=== PATIENT | female | born 1990 | race Caucasian/White ===

== ENCOUNTER 2017-12-21 13:59 | Observation (INO) | payer BC, MEDICAID, SELFPAY ==
[2017-12-21 14:00] VITALS: BP 114/53; PULSE 82; RESP 16; TEMP 36.8; O2SAT 100
[2017-12-21 14:05] VITALS: BMI 36.4
[2017-12-21 14:15] VITALS: BMI 36.4
--- NOTE | 2017-12-21 14:21 | NURSING ---
pt has not had any immunizations besides childhood ones years ago
[2017-12-21 14:22] VITALS: BP 114/53; PULSE 82; RESP 16; TEMP 36.8
[2017-12-21 14:53] LABS: Amphetamine Urine VISTA NEGATIVE (<1000 ng/mL); Barbiturate Urine VISTA NEGATIVE (< 200 ng/mL); Benzodiazepine Urine VISTA NEGATIVE (< 200 ng/mL); Cocaine Urine VISTA NEGATIVE (< 300 ng/mL); Ecstacy Urine VISTA NEGATIVE (< 500 ng/mL); Methadone Urine VISTA NEGATIVE (< 300 ng/mL); PCP Urine VISTA NEGATIVE (< 25 ng/mL); THC Urine VISTA NEGATIVE (< 50 ng/mL); Vista UDS pH Range 5
--- NOTE | 2017-12-21 15:01 | HP.PCM_ITS ---
Problem List (1) Drug abuse Status: Chronic (2) Obesity (BMI 30-39.9) Status: Chronic History of Present Illness Date of Admission: 12/21/17 Chief Complaint: Opioid withdrawal. The patient is a 27 year old F with past medical history as mentioned above who presented to the [facility] office requesting admission for medical stabilization for opioid withdrawal. She has been snorting heroin for the last 9 years almost every day and her last use was last night. Her symptoms are anxiety, shakiness and restlessness that has been going on since early this morning and has been constantly worsening, associated with restless legs no aggravating or relieving factors and no other associated symptoms. She denied abdominal pain or cramps, denied nausea vomiting. She denied diarrhea. She denies urinary symptoms. She mentioned that she had detoxification program last year in [place] this patient will augment she has started using heroin shortly after that detox program. At this time, her vital signs are stable. She was a direct admit and there was no routine blood work done. She is being admitted for opioid withdrawal for medical stabilization. Past Medical History Past Medical History (Chronic Problems): Chronic Problems Drug abuse (Chronic) Obesity (BMI 30-39.9) (Chronic) Allergies Sulfa (Sulfonamide Antibiotics) Allergy (Verified 12/21/17 14:11) Unknown breathing issues Home Medications: Ambulatory Orders Medication Instructions Recorded NK [NK] 12/21/17 Surgical History: - - x 1. Psychiatric History: No pertinent psych hx DIRECTOR BROADCAST History: No pertinent DIRECTOR BROADCAST history Smoking Status: Never smoker Alcohol: None Drugs: Heroin - *Family History Maternal History Items: - - Mother w/ osteoarthritis. Maternal aunt with lupus. Paternal History Items: Unknown Review of Systems Constitutional: Reports: Malaise. Denies: Anorexia, Chills, Fever, Weakness Eyes: Denies: Blurred vision, Double vision, Drainage, Redness HEENT: Denies: Difficulty Hearing, Ear Pain, Eye Pain, Nasal bleeding, Nasal Congestion, Sore Throat Cardiovascular: Denies: Chest Pain, Claudication, Chest Pressure, Edema Respiratory: Denies: Cough, Pleuritic Pain, Shortness of Breath, Sputum production, Wheezing Gastrointestinal: Denies: Abdominal Pain, Constipation, Diarrhea, Nausea, Vomiting Genitourinary: Denies: Dysuria, Frequency, Hematuria Musculoskeletal: Denies: Arm Pain, Back Pain, Foot Pain Skin: Denies: Dryness Neurological: Denies: Balance problems, Double vision, Confusion, Headaches, Incoordination, Numbness Psychiatric: Reports: Anxiety. Denies: Depression Endocrine: Denies: Change in Body Habitus, Polydipsia VTE Information - Inpt Only VTE Present on Admission: No VTE Mechan Device Prophylaxis: None VTE Pharm Prophylaxis ordered?: No - Physical Exam General: Alert, Oriented x3, Cooperative, - - Anxious, restless. HEENT: Atraumatic, PERRLA, EOMI Oral: Moist Mucosa, No Gingival or Mucosal Lesions/ Ulcerations Neck: Supple, No JVD, Negative Carotid Bruits, Trachea Midline, Thyroid Normal Size and Texture Lungs: Clear to auscultation, Normal air movement, No rhonchi, No wheeze, No rales Cardiovascular: Regular rate, Regular Rhythm, Normal S1, Normal S2, No murmurs Abdomen: Bowel Sounds Present, Soft, Non Tender, Non-Distended, No Hepato- splenomegaly Extremities: No clubbing, No cyanosis, No edema Skin: No rashes, No breakdown Lymphatic: No Cervical, Supraclavicular, or Inguinal Adenopathy Neurological: Cranial nerves II-XII grossly intact, Motor Exam 5/5 strength throughout Psych/Mental Status: Anxious, Restless, Alert and oriented to time, place, person, mood and affect Vital Signs Temp Pulse Resp BP Pulse Ox 98.2 F 82 16 114/53 L 100 12/21/17 14:22 12/21/17 14:22 12/21/17 14:22 12/21/17 14:22 12/21/17 14:00 Oxygen Delivery Method Room Air Weight: 180 lb 5.41 oz Body Mass Index (BMI) 36.4 Laboratory Tests Past 24 Hrs 12/21/17 12/21/17 12/21/17 14:10 14:52 14:52 WBC Pending RBC Pending Hgb Pending Hct Pending MCV Pending MCH Pending MCHC Pending RDW Pending RDW Differential Pending Plt Count Pending Neut % (Auto) Pending Absolute Neuts (auto) Pending Total Counted Pending Sodium Pending Potassium Pending Chloride Pending Carbon Dioxide Pending Anion Gap Pending BUN Pending Creatinine Pending Est GFR (MDRD) Af Amer Pending Est GFR (MDRD) Non-Af Pending BUN/Creatinine Ratio Pending Glucose Pending Calcium Pending Total Bilirubin Pending AST Pending ALT Pending Alkaline Phosphatase Pending Total Protein Pending Albumin Pending Serum , Qual Urine Opiates Screen POSITIVE H Urine Methadone Screen NEGATIVE Ur Barbiturates Screen NEGATIVE Ur Phencyclidine Scrn NEGATIVE Ur Amphetamines Screen NEGATIVE U Methamphetamin-MDMA NEGATIVE U Benzodiazepines Scrn NEGATIVE Urine Cocaine Screen NEGATIVE U Cannabinoids Screen NEGATIVE Ur Drug Screen Comment Ethyl Alcohol 12/21/17 12/21/17 14:52 14:52 WBC RBC Hgb Hct MCV MCH MCHC RDW RDW Differential Plt Count Neut % (Auto) Absolute Neuts (auto) Total Counted Sodium Potassium Chloride Carbon Dioxide Anion Gap BUN Creatinine Est GFR (MDRD) Af Amer Est GFR (MDRD) Non-Af BUN/Creatinine Ratio Glucose Calcium Total Bilirubin AST ALT Alkaline Phosphatase Total Protein Albumin Serum , Qual Pending Urine Opiates Screen Urine Methadone Screen Ur Barbiturates Screen Ur Phencyclidine Scrn Ur Amphetamines Screen U Methamphetamin-MDMA U Benzodiazepines Scrn Urine Cocaine Screen U Cannabinoids Screen Ur Drug Screen Comment Ethyl Alcohol Pending Assessment/Plan This is a 27 years old female patient presented to the [facility] office requesting admission for medical stabilization for opioid withdrawal. #1 acute opiate withdrawal: Patient has been snorting heroin for the last 9 years almost every day, last use was last night. Denied use of any other drugs. She denied alcohol drinking or smoking. Her vital signs are stable. Plan: [facility], stat CBC and CMP, urine drug screen, blood alcohol level, serum test, start [facility] protocol with tapering course of Subutex, as needed Tylenol, Catapres, Bentyl, Vistaril, methocarbamol , Zofran, Seroquel and liquid. #2 DVT prophylaxis: Low risk patient, no prophylaxis indicated, ambulate. This note was generated with [employer] dictation software. It may contain incorrect words, spelling, and punctuation that were not noted in checking the note before signing. Code Visit Inpatient E&M: 62680 Init Hosp L2
[2017-12-21 15:04] LABS: Absolute Lymphocyte Count 1.68 X10^3/ul (0.83-4.51); Absolute Neutrophil Count 3.4 X10^3/uL (2.0-7.7); Basophil# 0.01 X10^3/uL; Basophil% 0.2 % (0-1); Eosinophil# 0.04 X10^3/uL; Eosinophils% 0.7 % (0-5); Hematocrit 35.7 % (37-47); Hemoglobin 12.5 g/dl (12.0-15.0); Lymphocyte # 1.68 X10^3/ul (4.0); Lymphocyte % 29.6 % (19-41); Mean Corpuscular Hgb 31.2 pg (27.0-32.0); Mean Platelet Vol. 8.8 fl (6.2-12.0); Monocyte# 0.53 X10^3/uL; Monocyte% 9.3 % (0-10); Neutrophil # 3.41 X10^3/uL (2.7-7.7); Platelet Count 214 K/mm3 (150-450); RBC Distribution Width CV 13.2 % (11.6-14.6); RBC Distribution Width SD 42.2 fl (35.1-43.9); Red Blood Count 4.01 M/mm3 (4.2-5.4); White Blood Count 5.7 K/mm3 (4.4-11.0)
[2017-12-21 15:05] LABS: POSITIVE COUNT NO; POSITIVE DIFFERENTIAL NO; POSITIVE MORPHOLOGY NO
[2017-12-21 15:20] LABS: ALB/GLOB Ratio 1.1 RATIO (0.9-2.4); AST(SGOT) 12 U/L (15-37); Alanine Aminotransfer ALT/SGPT 16 U/L (13-56); Albumin, Serum 3.7 g/dL (3.2-5.0); Alkaline Phosphatase 41 U/L (45-117); Anion Gap 8 (5-15); BUN 11 mg/dL (7-18); Calcium,Total 8.6 mg/dL (8.5-10.1); Chloride 103 mmol/L (98-107); EST Glomerular Filtration Rate 159 mL/min (>60); Est Glom Filt Rate - Afr Amer 193 mL/min (>60); Estimated Creatinine Clearance 222.11 ml/min; Globulin 3.4 g/dL (2.2-4.2); Glucose 77 mg/dL (74-106); Potassium 3.7 mmol/L (3.5-5.1); Protein, Total 7.1 g/dL (6.4-8.2); Sodium Level 135 mmol/L (136-145)
[2017-12-21] MEDS: hydrOXYzine PAM 25 MG Capsule 50 MG PO (15:25)
[2017-12-21] MEDS: Acetaminophen 500 MG Tablet PO (15:28)
[2017-12-21 15:49] LABS: Pregnancy, Serum, hCG Quali. POSITIVE Negative (0-9 Nonpreg)
--- NOTE | 2017-12-21 16:00 | NURSING ---
this RN and Rosemarie spoke with pt informing her of positive test and option for [facility]'s withdrawal program for women.
--- NOTE | 2017-12-21 16:07 | DS.PCM_ITS ---
Discharge Date and Diagnosis Date of Admission: 12/21/17 Date of Discharge: 12/21/17 - Primary Discharge Diagnosis #1 acute opioid withdrawal. #2 positive test. - Secondary Discharge Diagnosis Chronic Problems Drug abuse (Chronic) Obesity (BMI 30-39.9) (Chronic) Hospital Course and Treatment Operations: None, - Procedures: None Summary of Care Provided: The patient is a 27 year old F presented to the [facility] office requesting admission for medical stabilization for opioid withdrawal. She was admitted, started on [facility] protocol with tapering course of Subutex. Her vital signs are stable. Her routine blood work was unremarkable. Her LFT was normal. Urine drug screen was positive for opioids. Serum test was positive. According to our protocol with [facility] service, the patient needs to be discharged and evaluated at another facility which they can manage opioid withdrawal in a patient. Patient discharged and highly recommended and encouraged to be evaluated at [facility] emergency department for probable admission for acute opioid withdrawal with . Discharge Diet: No Restrictions Discharge Activity: Return to Normal Activity Home Medications: Medications to take at Discharge NK [NK] 12/21/17 Primary Care Physician: Concha Crowder DO [Primary Care Provider] - Disposition: Home Patient Condition:: Stable Medical Necessity - Tobacco Use Smoking Status: Never smoker Meaningful Use Info Meaningful Use Diagnoses (Choose all that apply): None applicable
[2017-12-21 16:08] LABS: Alcohol, Blood (Medical)-Serum < 3.0 mg/dL
--- NOTE | 2017-12-21 17:07 | NURSING ---
pt still very upset about news. on phone with boyfriend trying to make plans
== END 2017-12-21 17:59 | disposition home or self-care (01) ==
PROVIDERS: Admitting Provider Hospitalist; Family Provider Family Medicine; PCP Family Medicine; Visit Provider Hospitalist
DX: O26.899 Other specified pregnancy related conditions, unspecified trimester (principal); F11.23 Opioid dependence with withdrawal; O99.210 Obesity complicating pregnancy, unspecified trimester; Z68.36 Body mass index [BMI] 36.0-36.9, adult; Z3A.00 Weeks of gestation of pregnancy not specified
CPT/HCPCS: 36415; 80053; 80307; 80320; 84703; 85025; 99218; G0378; G0379; G0480

== ENCOUNTER → 2018-05-16 15:33 | Outpatient (CLI) | payer BC, MEDICAID, SELFPAY ==
[2018-05-16 20:21] LABS: Chlamydia Trachomatis by PCR Negative (Negative); Neisserai gonorrhoeae by PCR Negative (Negative); Probe Check PASS; Sample Adequacy Control PASS; Specimen Processing Control PASS
[2018-05-19 16:29] LABS: HPV Reflexed? NOT INDICATED
== END ==
PROVIDERS: Visit Provider Obstetrics & Gynecology
DX: Z12.4 Encounter for screening for malignant neoplasm of cervix (principal); Z11.3 Encounter for screening for infections with a predominantly sexual mode of transmission
CPT/HCPCS: 87491; 87591; 88175; G0145

== ENCOUNTER → 2018-05-22 15:37 | Outpatient (CLI) | payer MEDICAID, SELFPAY ==
[2018-05-22 17:25] LABS: Absolute Lymphocyte Count 1.21 X10^3/ul (0.83-4.51); Absolute Neutrophil Count 3.2 X10^3/uL (2.0-7.7); Basophil# 0.01 X10^3/uL; Basophil% 0.2 % (0-1); Eosinophil# 0.02 X10^3/uL; Eosinophils% 0.4 % (0-5); Hematocrit 34.6 % (37-47); Hemoglobin 11.2 g/dl (12.0-15.0); Lymphocyte # 1.21 X10^3/ul (4.0); Lymphocyte % 24.8 % (19-41); Mean Corp Hgb Conc 32.4 g/gl (32-36); Mean Corpuscular Hgb 28.8 pg (27.0-32.0); Mean Corpuscular Volume 88.9 fL (81-99); Mean Platelet Vol. 9.9 fl (6.2-12.0); Monocyte# 0.44 X10^3/uL; Neutrophil # 3.19 X10^3/uL (2.7-7.7); Neutrophil % 65.6 % (47-70); POSITIVE COUNT NO; POSITIVE DIFFERENTIAL NO; POSITIVE MORPHOLOGY NO; Platelet Count 195 K/mm3 (150-450); RBC Distribution Width CV 12.7 % (11.6-14.6); RBC Distribution Width SD 39.9 fl (35.1-43.9); Red Blood Count 3.89 M/mm3 (4.2-5.4); White Blood Count 4.9 K/mm3 (4.4-11.0)
[2018-05-22 17:27] LABS: Color, Urine Yellow (Yellow); Glucose, Dipstick Normal (Normal); Ketone-Dipstick Negative (Negative); Leukocyte Esterase-Dipstick 25 /ul (Negative); Nitrite-Dipstick Negative (Negative); Occult Blood-Urine Negative /ul (Negative); Protein-Dipstick 15 mg/dl (Negative); Urine Bilirubin Dipstick Negative (Negative); Urine Clarity Sl. Cloudy (Clear); Urine Urobilinogen 4 mg/dl (Normal)
[2018-05-22 17:43] LABS: COTININE Drug Screen Negative (<200 ng/mL)
[2018-05-22 17:47] LABS: Thyroid Stim Hormone (TSH) 0.99 uIU/mL (0.358-3.74)
[2018-05-22 17:51] LABS: Amphetamine Urine VISTA NEGATIVE (<1000 ng/mL); Barbiturate Urine VISTA NEGATIVE (< 200 ng/mL); Benzodiazepine Urine VISTA NEGATIVE (< 200 ng/mL); Cocaine Urine VISTA NEGATIVE (< 300 ng/mL); Ecstacy Urine VISTA NEGATIVE (< 500 ng/mL); Methadone Urine VISTA NEGATIVE (< 300 ng/mL); PCP Urine VISTA NEGATIVE (< 25 ng/mL); THC Urine VISTA NEGATIVE (< 50 ng/mL); Vista UDS pH Range 7
[2018-05-22 18:36] LABS: HIV - WCH Non-Reactive (Nonreactive); Rubella IgG 324.1 IU/mL
[2018-05-24 10:24] LABS: HEPATITIS B SURFACE AG Negative (Negative); Hep C Antibodies <0.1 s/co ratio (0.0-0.9)
[2018-05-26 01:58] LABS: Prenatal RPR NONREACTIVE (NONREACTIVE)
== END ==
PROVIDERS: Visit Provider Obstetrics & Gynecology
DX: Z34.83 Encounter for supervision of other normal pregnancy, third trimester (principal)
CPT/HCPCS: 36415; 80307; 81002; 84443; 85025; 86703; 86762; 86803; 87340

== ENCOUNTER → 2018-05-30 14:28 | Outpatient (CLI) | payer MEDICAID, SELFPAY ==
[2018-05-30 16:55] LABS: Group B Strep DNA By PCR Negative (Negative); Internal Control PASS; Probe Check PASS; Specimen Processing Control PASS
== END ==
PROVIDERS: Visit Provider Obstetrics & Gynecology
DX: Z36.85 Encounter for antenatal screening for Streptococcus B (principal)
CPT/HCPCS: 87081; 87186; 87653

== ENCOUNTER 2018-06-16 05:15 | Inpatient (IN) | payer BC, MEDICAID, SELFPAY ==
[2018-06-13 11:53] VITALS: BMI 40.6
--- NOTE | 2018-06-13 11:59 | NURSING ---
PNC started 35 weeks
[2018-06-16] VITALS (28 sets, daily range): BP systolic 85–144; BP diastolic 45–72; PULSE 55–95; RESP 16; TEMP 36.1–37.3; O2SAT 97–99
[2018-06-16] MEDS: Lactated Ringers 1,000 ML 999 ML IV (05:45)
--- NOTE | 2018-06-16 05:45 | DCINST_ITS ---
Discharge Diet: No Restrictions Discharge Activity: Return to Normal Activity, May Not Drive, May not drive while taking narcotic pain medications., May Shower Return to work on:: 08/16/18 May shower in (days): 0 May resume sexual activity in: 4-6 weeks Call your doctor if your incision/area has: Sudden Increased Bleeding, Increased Pain/ Swelling, Increased Redness, Foul Smelling Discharge, Swelling at the incision site Call your doctor if you observe: Fever of 101 or Higher, Inability to urinate, Using more than one pad per hour, Shortness of breath, Chest pain, Calf discomfort, Uncontrolled pain Remove Dressing in (days):: 2 Cleanse incision/area with: Soap & Water Additional Instructions: If you experience any of the following, contact your healthcare provider. * Bleeding that soaks a pad every hour for 2 hours * Fever 100.4 or higher * Unrelieved incision or abdominal pain * Swelling, redness, discharge or bleeding from your incision or episiotomy site * Your incision begins to separate * Problems urinating (including inability to urinate or burning while urinating). * Visual changes * Severe headache * Flu-like symptoms * Pain or redness in one of both of your breasts * Pain, warmth, tenderness or swelling in your legs, especially the calf area * Frequent nausea and vomiting * Symptoms of depression or anxiety If you experience any of the following, call 911 or go to the nearest Emergency Room. * Chest pain * Problems breathing * Seizure activity * Partial or complete paralysis of a body part, slurred speech, weakness or drooping of the face, or a sudden inability to walk or hold your balance Allergies/Adverse Reactions: Allergies Sulfa (Sulfonamide Antibiotics) Allergy (Verified 06/13/18 11:55) Anaphylaxis breathing issues Medications to take at Discharge Vits [Prenatabs FA ] 1 tablet PO DAILY 06/13/18 Sertraline HCl [Zoloft] 50 mg PO DAILY 06/13/18 Ibuprofen 600 mg PO 4X/DAY #30 tab 06/16/18 Oxycodone [Oxyir] 5 - 10 mg PO Q4H PRN PRN 7 Days #28 tab 06/16/18 The following prescriptions were given: Oxycodone [Oxyir] 5 - 10 mg PO Q4H PRN PRN 7 Days #28 tab PRN Reason: Mod-Severe Pain (4-05/03) Ibuprofen 600 mg PO 4X/DAY #30 tab Follow-Up: Call to make an appointment with your doctor for an incision check in 1-2 weeks. You will also need a 6 week post- follow up appointment. Test results from this visit will be discussed in further detail at your follow- up appointment, if applicable. Please Follow Up With: Daniel Poole MD When: one week Primary Care Physician: Concha Crowder DO [Primary Care Provider] - Proposed Discharge Date: 06/19/18
--- NOTE | 2018-06-16 05:53 | PCM.OPRPT ---
Problem List (1) Previous delivery affecting , antepartum Status: Chronic Report of Operation Date of Procedure: 06/16/18 Pre-Operative Diagnosis: Previous Section at 39 weeks EGA Post-Operative Diagnosis: Same Surgery/Procedure Performed:: Repeat Low Transverse Section Description of Surgical Findings:: Normal appearing uterus, ovaries, and fallopian tubes. Amniotic fluid was lightly meconium stained. Normal appearing placenta. Live male weighing [id number]. APGARs 8/9. esthetician: Sandra Simmons Type of Anesthesia:: Spinal Anesthesiologist: Luis Manuel Raza Special Medications: none Specimen's removed: none Drains: jerome Estimated Blood Loss (mL): 600cc Fluids Replaced: 1500cc LR Description of Procedure: Procedures, risks, and postoperative expectations discussed with Kennedi prior to the surgery. She was taken to the OR with IV running. She was given two grams of Ancef intravenously prior to the start of the surgery. Spinal anesthesia was given without complication. A jerome catheter was placed. She was then prepped and draped in the supine position with a leftward tilt. Once anesthesia was deemed adequate a Pfannensteil skin incision was made through the previous scar. The underlying subcutaneous tissue was dissected down to the level of the fascia using blunt and sharp dissection. The fascia was then incised laterally in the midline and this incision was extended bilaterally with the Anderson scissors. The upper portion of the fascial defect was then grasped with two Vipul clamps, elevated and the rectus muscles dissected off the fascia with blunt and sharp dissection. The rectus muscles were dissected off the lower fascial defect in the same manner. The rectus muscles were in the midline, the peritoneum identified and entered sharply. The peritoneal defect was extended using blunt retraction. A bladder blade was placed. The vesicouterine peritoneum was then entered sharply and a bladder flap created. The bladder blade was then replaced. The lower uterine segment was incised in a transverse fashion. Once the cavity of the uterus was entered this defect was extended using blunt lateral and superior traction. The amniotic fluid was noted to be lightly meconium stained. The baby's head was then delivered with the assist of the Kiwi vacuum device followed by the body. The nose and mouth were then suctioned with a bulb suction. Delayed cord clamping was employed. The cord was clamped and cut and the baby handed to the waiting nurse for evaluation. The placenta was delivered manually. The uterus was exteriorized and cleared of all clot and membranes. The uterine incision was then closed in two layers with #1 Vicryl suture. The posterior cul de sac was cleared of all clot and fluid. The uterus was returned to the abdomen. The uterine incision was reinspected and found to be hemostatic. The peritoneum was closed with 2-0 Vicryl. The rectus muscles were reapproximated with 0-Vicryl suture. The fascia was closed with a running stitch of #1 Stratofix suture. The subcutaneous tissue was closed with 2-0 Vicryl. The skin was closed with a subcuticular stitch of 4-0 Monocryl suture. Sponge, lap, and needle and instrument counts were correct. She was taken to the recovery room in stable condition. Grafts/Implants Used: none - Complications none - Admit VTE Documentation VTE Present on Admission: No VTE Mechan Device Prophylaxis: SCD's VTE Pharm Prophylaxis ordered?: No
--- NOTE | 2018-06-16 06:10 | OP.PCM_ITS ---
Problem List (1) Previous delivery affecting , antepartum Status: Chronic Report of Operation Date of Procedure: 06/16/18 Pre-Operative Diagnosis: Previous Section at 39 weeks EGA Post-Operative Diagnosis: Same Surgery/Procedure Performed:: Repeat Low Transverse Section Description of Surgical Findings:: Normal appearing uterus, ovaries, and fallopian tubes. Amniotic fluid was lightly meconium stained. Normal appearing placenta. Live male weighing [id number]. APGARs 8/9. tire man: Sandra Simmons Type of Anesthesia:: Spinal Anesthesiologist: Luis Manuel Raza Special Medications: none Specimen's removed: none Drains: jerome Estimated Blood Loss (mL): 600cc Fluids Replaced: 1500cc LR Description of Procedure: Procedures, risks, and postoperative expectations discussed with Kennedi prior to the surgery. She was taken to the OR with IV running. She was given two grams of Ancef intravenously prior to the start of the surgery. Spinal anesthesia was given without complication. A jerome catheter was placed. She was then prepped and draped in the supine position with a leftward tilt. Once anesthesia was de emed adequate a Pfannensteil skin incision was made through the previous scar. The underlying subcutaneous tissue was dissected down to the level of the fascia using blunt and sharp dissection. The fascia was then incised laterally in the midline and this incision was extended bilaterally with the Anderson scissors. The upper portion of the fascial defect was then grasped with two Vipul clamps, el evated and the rectus muscles dissected off the fascia with blunt and sharp dissection. The rectus muscles were dissected off the lower fascial defect in the same manner. The rectus muscles were in the midline, the peritoneum identified and entered sharply. The peritoneal defect was extended using blunt retraction. A bladder blade was placed. The vesicouterine peritoneum was then entered sharply and a bladder flap created. The bladder blade was then replaced. The lower uterine segment was incised in a transverse fashion. Once the cavity of the uterus was entered this defect was extended using blunt lateral and superior traction. The amniotic fluid was noted to be lightly meconium stained. The baby's head was then delivered with the assist of the Kiwi vacuum device followed by the body. The nose and mouth were then suctioned with a bulb suction. Delayed cord clamping was employed. The cord was clamped and cut and the baby handed to the waiting nurse for ev aluation. The placenta was delivered manually. The uterus was exteriorized and cleared of all clot and membranes. The uterine incision was then closed in two layers with #1 Vicryl suture. The posterior cul de sac was cleared of all clot and fluid. The uterus was returned to the abdomen. The uterine incision was reinspected and found to be hemostatic. The peritoneum was closed with 2-0 Vicryl. The rectus muscles were reapproximated with 0-Vicryl suture. The fascia was closed with a running stitch of #1 Stratofix suture. The subcutaneous tissue was closed with 2-0 Vicryl. The skin was closed with a subcuticular stitch of 4-0 Monocryl suture. Sponge, lap, and needle and instrument counts were correct. She was taken to the recovery room in stable condition. Grafts/Implants Used: none - Complications none - Admit VTE Documentation VTE Present on Admission: No VTE Mechan Device Prophylaxis: SCD's VTE Pharm Prophylaxis ordered?: No
[2018-06-16 06:15] LABS: Absolute Lymphocyte Count 1.72 X10^3/ul (0.83-4.51); Absolute Neutrophil Count 4.7 X10^3/uL (2.0-7.7); Basophil# 0.01 X10^3/uL; Basophil% 0.1 % (0-1); Eosinophil# 0.01 X10^3/uL; Eosinophils% 0.1 % (0-5); Hematocrit 36.8 % (37-47); Hemoglobin 11.6 g/dl (12.0-15.0); Lymphocyte # 1.72 X10^3/ul (4.0); Lymphocyte % 24.4 % (19-41); Mean Corp Hgb Conc 31.5 g/gl (32-36); Mean Corpuscular Hgb 27.5 pg (27.0-32.0); Mean Corpuscular Volume 87.2 fL (81-99); Mean Platelet Vol. 10.4 fl (6.2-12.0); Monocyte# 0.56 X10^3/uL; Neutrophil # 4.71 X10^3/uL (2.7-7.7); Platelet Count 222 K/mm3 (150-450); RBC Distribution Width CV 13.7 % (11.6-14.6); RBC Distribution Width SD 41.8 fl (35.1-43.9); Red Blood Count 4.22 M/mm3 (4.2-5.4)
[2018-06-16 06:18] LABS: POSITIVE COUNT NO; POSITIVE DIFFERENTIAL NO; POSITIVE MORPHOLOGY NO
[2018-06-16 06:20] LABS: Prothrombin Time (Protime)PT. 13.3 SECONDS (11.7-14.9)
[2018-06-16 06:21] LABS: Partial Thromboplast Time 26.9 Seconds (24.1-36.2)
--- NOTE | 2018-06-16 06:40 | PCM.IMED.CSR ---
- Problem List (1) Previous delivery affecting , antepartum Status: Chronic O-Hecaant-Ipmpcwrbf PostOp Date of Procedure: 06/16/18 Primary Surgeon/Physician: Daniel Poole user interface engineer: Sandra Simmons Pre-op Diagnosis: Repeat Elective Post-Op Diagnosis: Repeat Elective Surgery/Procedure Performed: Repeat low transverse Section Description of Surgical Findings:: Normal appearing uterus, ovaries, and fallopian tubes. Delivery of a live male weighing 7lb14 oz with APGARs fo 8/9 Estimated Blood Loss: 600cc Specimens Removed: none Drain: Velarde to straight drain Type of Anesthesia: Spinal ASA Class: ASA2 Mod Systematic Disease - Admit VTE Documentation VTE Present on Admission: No VTE Mechan Device Prophylaxis: SCD's VTE Pharm Prophylaxis ordered?: No
--- NOTE | 2018-06-16 06:41 | PCM.OB.CSR ---
- Problem List (1) Previous delivery affecting , antepartum Status: Chronic Delivery Classification: Scheduled Final KATHERINE: 06/23/18 Final KATHERINE Source: US <20 weeks Gestational age: 39 Weeks and 0 Days Indications for : Repeat Elective Description of Procedure: Delivery of live male with apgars 8/9 with weight of [id number]. Normal appearing uterus, ovaries, and fallopian tubes. Amniotic fluid with light meconium. Amniotic Membrane Rupture Type: Artificial Amniotic Fluid Description: Clear Placenta Disposition: [facility] Specimen(s) sent to pathology: none Drain: Velarde to straight drain Fluids Replaced: 1500cc Cord Entanglement: None Nuchal Cord Compression: Without compression Cord Vessel Description: 3 Vessels Esitmated Blood Loss (ml): 600cc Gender: Male (1 minute): 8 (5 minute): 9 Delayed cord clamping: Yes Pre-op Antibiotic Given: Ancef 2 grams IV x1 Pt instructed on risks of surgery: Bleeding, Anesthesia Risks, Infection, Need for Future C-Sections, Injury to surrounding structure(s) including bowel and bladder Complications: None - Admit VTE Documentation VTE Present on Admission: No VTE Mechan Device Prophylaxis: SCD's VTE Pharm Prophylaxis ordered?: No
[2018-06-16] MEDS: Lactated Ringers 1,000 ML 100 ML IV ×3 (06:50→21:08)
[2018-06-16] MEDS: Cefazolin 2 GM in 0.9% Normal Saline 100 ML IV (07:00)
[2018-06-16 07:21] LABS: Amphetamine Urine VISTA NEGATIVE (<1000 ng/mL); Barbiturate Urine VISTA NEGATIVE (< 200 ng/mL); Benzodiazepine Urine VISTA NEGATIVE (< 200 ng/mL); Cocaine Urine VISTA NEGATIVE (< 300 ng/mL); Ecstacy Urine VISTA NEGATIVE (< 500 ng/mL); Methadone Urine VISTA NEGATIVE (< 300 ng/mL); PCP Urine VISTA NEGATIVE (< 25 ng/mL); THC Urine VISTA NEGATIVE (< 50 ng/mL); Vista UDS pH Range 5
[2018-06-16] MEDS: Oxytocin 30 units/NS 500 ml 30 UNITS/500 ML IV.SOLN 167 UNITS IV (07:47)
[2018-06-16] MEDS: Ketorolac 30 MG/ML Syringe IV ×4 (08:00→23:40)
--- NOTE | 2018-06-16 09:53 | EKG12_ITS ---
Test Reason : IRREGULAR Blood Pressure : / mmHG Vent. Rate : 069 BPM Atrial Rate : 069 BPM P-R Int : 134 ms QRS Dur : 074 ms QT Int : 380 ms P-R-T Axes : 070 077 033 degrees QTc Int : 407 ms Sinus rhythm with marked sinus arrhythmia Otherwise normal ECG Confirmed by MILENA GARCIA, KESHAWN ([id number]), web editor ALLY FREITAS ([id number]) on 06/19/2018 2:22:40 PM Referred By: Daniel Poole Confirmed By:KESHAWN ABBOTT MD
[2018-06-16] MEDS: Ondansetron 4 MG/2 ML Vial IV (10:11)
--- NOTE | 2018-06-16 10:32 | NURSING ---
THIS NURSE HAS CALLED ANESTHESIA REGARDING PAIN CONTROL FOR THIS PT, PT RATES HER PAIN AN 8/10, ANESTHESIA STATES WE NEED TO CALL PAIN MANAGEMENT DUE TO HER HISTORY OF DRUG USE WE NEED TO CONSULT PAIN MANAGEMENT, UPDATED ON THIS CONVERSATION AND HE STATED HE WOULD CALL BUT WAS DOUBTFUL HE WOULD BE IN TODAY. EXG ORDER WAS OBTAINED FROM [facility] TO THE IRREGULAR RHYTHM NOTED ON THE 3 LEAD MONITOR. EKG DONE RESULTS PLACED IN THE CHART PT HAS A BINDER ON AND A HEATING PAD TO HELP WITH COMFORT. PT GIVEN ZOFRAN FOR HER NAUSEA SHE STATES THIS WAS EFFECTIVE.
[2018-06-16] MEDS: Acetaminophen 500 MG Tablet 1000 MG PO ×2 (10:52→22:34)
[2018-06-16] MEDS: HYDROmorphone 1 MG/ML Syringe 2 MG IV (11:30)
--- NOTE | 2018-06-16 11:41 | NURSING ---
the pt was medicated with dilaudid 2mg iv slowly adm pt is resting at this time, will cont to monitor pt 3 lead conts to monitor as well
[2018-06-16] MEDS: DiphenhydrAMINE 50 MG/ML Syringe IV (12:03)
--- NOTE | 2018-06-16 14:41 | NURSING ---
pt sleeping at this time, resp easy and nonlabored, conts pulse ox reading 98-99 on room air.
--- NOTE | 2018-06-16 14:45 | CASEMGMT ---
Social Work Labor and Delivery Reason for?intervention: ?maternal history of substance use. Baby has been admitted to the [facility]. ? ? Summary of Family/Staff/Agency Contact:??Consult received and noted today. ??This television writer is the certified social workers in health care for [facility] ([facility]) labor and delivery unit, and for continuity of care of families on the [facility] this television writer also provides social work to the [facility]. Medical records reviewed. ?This television writer is familiar with patient/mother of baby (MOB) from previous delivery at [facility], also for similar issues of maternal substance use. Previous delivery in 2017 did result in baby going to the [facility] for issues related to substance exposure. MOB previously cooperative with staff and certified social workers in health care when this television writer worked with MOB in the past. Spoke with RN caring for MOB today. ?Per NADINE Connor, today is not a good time to see MOB for assessment, as RN attempting to address MOB's post surgical needs and pain issues (delivered baby via caesarian section). ?RN to let this television writer know if MOB's status improves for conversation with certified social workers in health care today. ?Spoke with coating engineer and baby will be monitored for AMY between 3-7 days. ? Assessment:?Unable to meet with MOB for assessment and consult today. ??Will need to make a children services referral due to substance exposed . Noted in MOB's record a positive drug screen for opiates in November 2017. Noted MOB with care starting at 35 weeks and since starting care in the 3rd trimester negative drugs screens. No care or labs noted between the end of November 2017 and May 22, 2018. ?As baby will remain in the hospital through the weekend will wait to make a children services referral until Tuesday06-19-18 when this television writer is able to speak with MOB for a better picture of social situation and history of use during this , as well as when the agency is not responding via online services manager workers (agency closed the day after ). ??Note, should there be an emergency with baby and immediate safety concerns arise about parental interactions with the baby while hospitalized, the emergency online services manager number for [facility] is [phone] ? Plan:?Continue to follow patient and family. Plan to see MOB for assessment on 06-19-18. Should MOB be discharged as a patient from [facility] before 06-19-18, this television writer will still be following up with MOB due baby being on the SCN. ? ?? Will make a referral to children services after that speaking to MOB. -RADHA Horta, MERLENE?? ?
[2018-06-16] MEDS: Cefazolin 1 GM/50 ML BAG IV ×2 (15:20→22:36)
[2018-06-16] MEDS: HYDROmorphone 1 MG/ML Syringe IV ×3 (15:40→23:28)
[2018-06-16] MEDS: DiphenhydrAMINE 25 MG Capsule PO (18:28)
--- NOTE | 2018-06-16 18:55 | NURSING ---
This nurse questioned pt regarding her drug use, I asked her if after her 2nd baby if she felt receiving narcotics while in the hosp was the reason she relapsed and starting using street drugs, she stated yes. I then asked her if she was afraid using narcotics while here in the hosp would cause her to relapse, she responded probably. Pt states she did not go to rehab this year she went before she had her first baby. Pt assisted up to the bathroom and enc her to brush her teeth, wash up and to do radha care, clean gown on and pt then walked to the [facility], several times pt stopped and didnt want to cont to walk, pt is in room 10 she only had to walk across the hallway. Pt was in the scn about 10 min and asked to come back to her room, pt assisted back to her bed, she asked for pain med, pt medicated with toradol 30mg iv and benadryl 25 mg po. Vital signs obtained and charted.
--- NOTE | 2018-06-16 20:44 | NURSING ---
Pt encouraged to ambulate and feed at 2100. Pt refused to get out of bed due to pain. Explained to pt need to get out of bed and ambulate. Pt agrees to ambulate to SCN and feed infant at 0000. Will continue to encourage increased ambulation.
[2018-06-16] MEDS: 0.9% Saline Lock 10 ML Syringe IV (22:35)
[2018-06-17] MEDS: Lactated Ringers 1,000 ML 999 ML IV (02:28)
[2018-06-17 02:37] VITALS: PULSE 76; RESP 14; O2SAT 97
[2018-06-17] MEDS: Lactated Ringers 1,000 ML 200 ML IV ×3 (03:23→13:59)
[2018-06-17] MEDS: HYDROmorphone 1 MG/ML Syringe IV (03:40)
[2018-06-17 04:46] VITALS: BP 106/76; PULSE 77; RESP 16; TEMP 36.6; O2SAT 98
[2018-06-17 05:57] LABS: Hematocrit 29.3 % (37-47); Hemoglobin 9.1 g/dl (12.0-15.0); Mean Corp Hgb Conc 31.1 g/gl (32-36); Mean Corpuscular Hgb 27.5 pg (27.0-32.0); Mean Corpuscular Volume 88.5 fL (81-99); Mean Platelet Vol. 9.9 fl (6.2-12.0); Platelet Count 174 K/mm3 (150-450); RBC Distribution Width CV 13.7 % (11.6-14.6); RBC Distribution Width SD 41.4 fl (35.1-43.9); Red Blood Count 3.31 M/mm3 (4.2-5.4); White Blood Count 6.3 K/mm3 (4.4-11.0)
[2018-06-17] MEDS: Ketorolac 30 MG/ML Syringe IV ×3 (06:01→17:53)
[2018-06-17 06:05] VITALS: PULSE 75; RESP 16; O2SAT 97
[2018-06-17 06:09] LABS: Scan Indicated on CBC? Y/N NO
[2018-06-17] MEDS: HYDROmorphone 0.5 MG/0.5 ML SYRINGE IV (07:48)
[2018-06-17 07:50] VITALS: BP 115/75; PULSE 56; RESP 16; TEMP 36.9; O2SAT 99
--- NOTE | 2018-06-17 08:43 | PCM.PN.OB ---
Subjective: Uncomfortable due to incisional pain. Not taking much PO. No nausea or vomiting. Objective: Afeb VSS. Hgb appropriate. Urine output adequate. - Physical Exam General: Alert, Oriented x3, Cooperative, No apparent distress Lungs: Clear to auscultation, Normal air movement Cardiovascular: Regular rate, Regular Rhythm Abdomen: Soft, Non-Distended, - - Incisional tenderness. Dressing dry. No erythema Extremities: Edema - mild feet and hands Skin: No rashes Neurological: Neuro grossly intact Psych/Mental Status: Normal Affect Comment: Lochia light Vital Signs Temp Pulse Resp BP Pulse Ox 98 F 75 16 106/76 97 06/17/18 04:46 06/17/18 06:05 06/17/18 06:05 06/17/18 04:46 06/17/18 06:05 Oxygen Delivery Method Room Air Weight: 204 lb 5.896 oz Body Mass Index (BMI) 40.6 Intake and Output for Last 24 Hours 06/15/18 06/16/18 06/17/18 23:59 23:59 23:59 Intake Total 4660 / 4660 1772 / 1772 Output Total 625 / 625 225 / 225 Balance 4035 / 4035 1547 / 1547 Laboratory Tests Past 24 Hrs 06/17/18 05:47 WBC 6.3 RBC 3.31 L Hgb 9.1 L Hct 29.3 L MCV 88.5 MCH 27.5 MCHC 31.1 L RDW 13.7 RDW Differential 41.4 Plt Count 174 MPV 9.9 Medical Necessity - Tobacco Use Smoking Status: Never smoker Assessment/Plan Progressing on POD#1. Will d/c jerome catheter. Plan to try to control pain with oxycodone and toradol and decrease/stop dilaudid. Encouraged to be out of bed. Baby in special care.
[2018-06-17] MEDS: Sertraline 50 MG Tablet PO ×2 (08:58→21:52)
[2018-06-17] MEDS: Prenatal Vits Tablet 1 TABLET PO (08:58)
[2018-06-17] MEDS: oxyCODONE 5 MG Tablet PO ×5 (09:53→22:59)
[2018-06-17] MEDS: Senna/Docusate Sodium 1 Tablet PO (09:53)
--- NOTE | 2018-06-17 10:00 | NURSING ---
This RN went into room around 0750 after pt called RN asking for pain medication. This RN medicated pt and did assessment along with vitals. Told pt that it is best for pt to get up and get moving out of bed to assist with recovery. Pt states she is in too much pain. This RN stated to pt that pain control will be difficult with her history of drug use. Pt voiced understanding and then told RN that she thinks her pain is better. Pt asked if RN could change her pad. RN had pt get up to bathroom for radha care and to get washed up. Pt tolerated ok. This RN then asked if pt was going to [facility] to feed baby at 0900 feeding. Pt stated that she was planning on it. Pt then said can we just go now since I am up? This RN assisted with walking pt to [facility] around 0815. Once in [facility] this RN stated that she can be in there for his feeding and pt stated No I can't stay that long, I only last for a half an hour. This RN stated that pt should make a goal to stay for a little over an hour so she can feed baby. Pt had no response. When this RN checked on pt around 0830 pt was still not holding or interacting with baby. At 0845 SCN nurse called and stated that pt would like to go back to room. This RN went to get pt and pt was holding baby, [facility] nurse asked if she would like to hold baby longer or if she was ready and she stated she wanted the [facility] nurse to take the baby. This RN assisted pt back to bed and took the jerome catheter out per Dr Poole request. RN encouraged pt to drink the water that was filled in her jug and order some breakfast. Pt voiced understanding. This RN informed pt of goal to not need to take the IV dilaudid and start using the OXYIR per Dr Poole. RN also told pt to make goal to get out of bed on own at least 5 times today on own. Pt nodded. At 0950 this RN went back in to room and pt was sleeping with room dark and TV on. This RN asked if she had ordered breakfast. Pt stated she was not going to eat and did not feel like drinking. This RN once again encouraged po intake. pt had no response and closed eyes again.
[2018-06-17 14:00] VITALS: BP 112/69; PULSE 58; RESP 16; TEMP 36.6; O2SAT 97
--- NOTE | 2018-06-17 17:59 | NURSING ---
Pt called RN to room asking for pain meds. This RN went in with meds and pt stated that she is feeling very agitated, anxious and depressed. This RN asked when the last time was that pt used drugs, pt stated it's been awhile. This RN sat down with pt on bed and asked the pt to specify. The pt stated it's been since like, November. This RN stated that a lot of the symptoms she is having are symptoms that are similar to withdrawl. The pt stated that she thinks it is from the medicine she is getting here that is causing those symptoms because she hasn't used recently. This RN then asked why she thinks she is feeling depressed and if it's because of Zander is in the SCN and his AMY scores are getting higher. Pt stated yeah I just didn't expect that to happen. This RN asked her to explain and she stated its because with her first baby she was using the whole and with this one she wasn't so she didn't expect him to go through the same thing. The pt then asked if she could get some Benadryl to help her relax and sleep. This RN stated that she could not give Benadryl for that reason. pt Voiced understanding. This RN offered to stay with pt and talk with her if she needed someone to talk to. She stated that she was going to get up and go visit [facility] in the SCN. This RN then asked if she ordered dinner since she had not eaten all day and refused to get food, she stated that she had no appetite and did not want to order anything. This RN encouraged PO intake once again.
--- NOTE | 2018-06-17 18:28 | NURSING ---
Pt called RN to room asking for assistance in the room. RN went to room and pt was in bed and stated she wanted the pillows that were on the couch. RN helped get pt comfortable in bed. RN asked if pt went over to SCN to see the baby. Pt stated no, I just am not up to it. RN asked if there was anything that pt would like to talk about, pt stated not right now. RN asked if anyone was staying the night with pt and she stated no. RN asked if that was because she wanted to be alone and she stated nobody can stay with me, but I am okay with that. Pt asked if RN could turn all the lights out and when it is time to give report to nightshift she would like it done outside the room.
--- NOTE | 2018-06-17 18:54 | NURSING ---
Dr Poole on unit, this RN updated him on pt stating that she is feeling agitated and depressed. Order per Dr Poole to change zoloft from morning to QHS and give another dose tonight.
--- NOTE | 2018-06-17 19:04 | NURSING ---
Pt called this RN back to room again for assistance. Pt stated that she would like help with putting her abdominal binder back on. Pt stated once again that she just wants to be able to go home because she just feels so agitated and depressed. This RN asked if pt would harm herself and pt stated that no she was not feeling that way and did not want people worrying about her because she is not at that point. She stated that she feels like she is being judged by people here and that people think she is a bad person. This RN stated that nobody can understand what she is going through unless we walk in her shoes and that we are not judging we just care about the safety and health of her and her baby. Pt nodded and agreed. This RN stated it will be time for operations supervisor 2nd shift nurses to come and she said she is not fine with the nurses coming in room for bedside report.
--- NOTE | 2018-06-17 19:55 | PCM.DC.SUM ---
Discharge Date and Diagnosis Date of Admission: 06/16/18 Date of Discharge: 06/18/18 - Primary Discharge Diagnosis s/p repeat LTCS - Secondary Discharge Diagnosis Chronic Problems Previous delivery affecting , antepartum (Chronic) Drug abuse (Chronic) Obesity (BMI 30-39.9) (Chronic) Hospital Course and Treatment Operations: - - LTCS Summary of Care Provided: The patient is a 27 year old F [admitted for scheduled repeat section at 39 weeks. This was performed without complication with delivery of a live . Post operative course was only remarkable for poor pain management in the first 24 hours which improved by PO day#2. She was discharged on POD#2 despite the fact that the baby was in special care.] - Physical Exam Vital Signs Temp Pulse Resp BP Pulse Ox 97.8 F 58 L 16 112/69 97 06/17/18 14:00 06/17/18 14:00 06/17/18 14:00 06/17/18 14:00 06/17/18 14:00 Oxygen Delivery Method Room Air Weight: 204 lb 5.896 oz Body Mass Index (BMI) 40.6 Intake and Output for Last 24 Hours 06/15/18 06/16/18 06/17/18 23:59 23:59 23:59 Intake Total 4660 / 4660 3431 / 3431 Output Total 625 / 625 1000 / 1000 Balance 4035 / 4035 2431 / 2431 Laboratory Tests Past 24 Hrs 06/17/18 05:47 WBC 6.3 RBC 3.31 L Hgb 9.1 L Hct 29.3 L MCV 88.5 MCH 27.5 MCHC 31.1 L RDW 13.7 RDW Differential 41.4 Plt Count 174 MPV 9.9 Discharge Diet: No Restrictions Discharge Activity: Return to Normal Activity, May Not Drive, May not drive while taking narcotic pain medications., May Shower Return to work on:: 08/16/18 May shower in (days): 0 May resume sexual activity in: 4-6 weeks Call your doctor if your incision/area has: Sudden Increased Bleeding, Increased Pain/ Swelling, Increased Redness, Foul Smelling Discharge, Swelling at the incision site Call your doctor if you observe: Fever of 101 or Higher, Inability to urinate, Using more than one pad per hour, Shortness of breath, Chest pain, Calf discomfort, Uncontrolled pain Remove Dressing in (days):: 2 Cleanse incision/area with: Soap & Water Home Medications: Medications to take at Discharge Vits [Prenatabs FA ] 1 tablet PO DAILY 06/13/18 Sertraline HCl [Zoloft] 50 mg PO DAILY 06/13/18 Primary Care Physician: Concha Crowder DO [Primary Care Provider] - Please Follow Up With: Daniel Poole MD When: one week Disposition: Home Minutes spent on discharge:: 15 Patient Condition:: Good Medical Necessity - Tobacco Use Smoking Status: Never smoker Meaningful Use Info Meaningful Use Diagnoses (Choose all that apply): None applicable
[2018-06-17] MEDS: Zolpidem Tartrate 5 MG Tablet ORAL (20:17)
[2018-06-17 20:20] VITALS: BP 121/59; PULSE 56; RESP 16; TEMP 37.1; O2SAT 98
[2018-06-18 01:10] VITALS: BP 113/77; PULSE 61; RESP 16; TEMP 36.9; O2SAT 98
[2018-06-18] MEDS: 0.9% Saline Lock 10 ML Syringe IV (01:10)
[2018-06-18] MEDS: Ketorolac 30 MG/ML Syringe IV (01:10)
[2018-06-18] MEDS: oxyCODONE 5 MG Tablet PO ×2 (03:45→07:37)
[2018-06-18] MEDS: Ibuprofen 600 MG Tablet PO (07:39)
[2018-06-18 07:50] VITALS: BP 98/74; PULSE 52; RESP 16; TEMP 36.7; O2SAT 99
--- NOTE | 2018-06-18 07:58 | NURSING ---
When this RN in room this AM doing vitals and assessment, pt once again stated she is just so tired and depressed. Nightshift staff stated that pt did not go to [facility] at all during the night to visit baby and was not able to sleep. Pt also did not eat or drink anything like the staff has encouraged her to do. All of this info was passed to Dr Poole this AM. Dr Poole went into room to talk with pt and pt stated that she would like to go home. Dr Poole told pt that he would like if she stayed one more day, pt insisted that she needed to go home. Pt informed that we could not offer her a courtesy room since she is only PP day #2. Pt states that is okay because she would not use it anyway since she lives so close. Dr Poole asked pt about her mood and how she is feeling. Pt stated that she is definitely feeling depressed but thinks she just needs to sleep and be at home with her family. Dr Poole asked pt if she felt that she would harm herself, pt stated no. Dr Poole went over discharge instructions with pt and once again stated he wishes she would stay another day. Pt stated she understands but needs to go home. When Dr Poole left room this RN asked if pt would be back in to visit baby. She stated she would come a couple times a day. This RN asked pt about whether she is still feeling like she would like to keep baby since she was questioning what she would like to do with baby when she first became . Pt stated she still wants baby she is just having a hard time seeing him like that
--- NOTE | 2018-06-18 08:01 | PCM.PN.OB ---
Subjective: Somewhat depressed but without ideation of doing harm to herself or others. Baby is in special care but she requests discharge to home. Pain is reasonably controlled. Bleeding light. Bottle feeding. Objective: Afeb VSS - Physical Exam General: Alert, Oriented x3, Cooperative, No apparent distress Lungs: Clear to auscultation, Normal air movement Cardiovascular: Regular rate, Regular Rhythm Abdomen: Soft, Non-Distended, - - Fundus firm appropriately tender. Incision dressing dry. Extremities: No edema Skin: No rashes Neurological: Neuro grossly intact Psych/Mental Status: Normal Affect Comment: Lochia light Vital Signs Temp Pulse Resp BP Pulse Ox 98.1 F 52 L 16 98/74 99 06/18/18 07:50 06/18/18 07:50 06/18/18 07:50 06/18/18 07:50 06/18/18 07:50 Oxygen Delivery Method Room Air Weight: 204 lb 5.896 oz Body Mass Index (BMI) 40.6 Intake and Output for Last 24 Hours 06/16/18 06/17/18 06/18/18 23:59 23:59 23:59 Intake Total 4660 / 4660 3431 / 3431 Output Total 625 / 625 1000 / 1000 Balance 4035 / 4035 2431 / 2431 Medical Necessity - Tobacco Use Smoking Status: Never smoker Assessment/Plan POD #2 doing well from postsurgical standpoint. Mood seems depressed but not overly so. She insists on discharge home despite my efforts to convince her to stay. Home going instructions and warnings given. Will continue sertraline at home. Has followup appointment with me this week.
--- NOTE | 2018-06-18 08:55 | NURSING ---
Pt states she cannot fill out her certificate at this time because she is unsure of the babies middle name yet. Pt states she will be back in this afternoon and will bring certificate back with her.
--- NOTE | 2018-06-19 14:01 | CASEMGMT ---
Social Work Labor and Delivery Unit Patient/mother of baby (MOB) was discharged on 06.18.2018. Reviewed nursing documentation for MOB's stay this visit. Planned on meeting with MOB today for assessment and provision of resources, however MOB came to the 1200 feeding for baby and had to leave due to her ride before this radio news writer able to get to the SCN. Spoke with MOB on the phone. Set up a meeting time for 1230 on 06.20.2018. Plan: Assessment/consult set for 06.20.2018 at 1230. -RADHA Horta, [employer]IBERGL[employer] BOAT MAKER
--- NOTE | 2018-06-20 13:30 | CASEMGMT ---
Social Work Labor and Delivery Unit ? Date of Intervention:?06/20/2018 Time of Intervention:?[id number] Referred by:?notification by nursing staff; Notification by air hoist operator. ? Reason for?intervention: ?maternal history of substance use. Baby has been admitted to the [facility]. ? ? History obtained from:?Medical record and mother of baby (MOB) Shaun Tarango. ??MOB informed that this blurb writer as the social group worker for [facility] delivery labor and delivery unit also provides social work to families on the [facility] for continuity of care. ?MOB is familiar with this blurb writer from previous interactions on [facility] of delivery and [facility] ? Household composition:??MOB reports to live between MOB's mother's home and MOB's father's home. ?MOB gets mail at her mother's home. ?MOB has a stepfather who lives with MOB's mother Helena Tarango. ?MOB reports older son Marty lives with MOB, wherever MOB is staying. ?MOB reports home situation is safe and adequate. ??MOB reports the reported father of baby (FOB) technically lives with his mother, but does sometimes stay with MOB, though do not live together. ? ? Patient's parent/guardian status:?MOB Shaun Tarango and reported FOB Todd Bauer are both 25 years old and together since 2010 or 2011. ?No reports of abuse in the relationship. ??Both MOB and FOB have addiction issues, and FOB is currently residing at [facility] residential facility since about the summertime of 2017. ?MOB and FOB now share 2 children together. ?MOB reports to have custody of all of her children. ???MOB reports FOB does get passes and has been coming to visit the baby. ? Minor Children (have same father): Marty Bauer, born 09.05.2016 Patient/baby boy Dwayne Bauer, born 06.16.2016 ? Medical History:?MOB is G2, P1 to 2 after delivering Dwayne. ?MOB found out about on December 21, 2017 when [facility] from [facility]iates. ??No care then until 35 weeks gestation, on 05.22.2018. ??MOB with positive drug screens in November 2017 when presenting for detox, negative 05.22.2018 and then at delivery on 06.16.2018 (usual ordered urine drug screen at hospital of delivery does not include synthetic drugs). ??Baby delivered via caesarian section, meconium present at delivery. ?Baby born at 39 weeks, weighed 7 pounds 14 ounces, Apgars 8 and 9 at 1 and 5 minutes of life. ? ? Educational Status:??HELENA is a high school graduate, went to trade school studying cosmetology. ??MOB is able to read, write, no learning comprehension issues. ? ? Health Care Coverage:??HELENA is covered under [place] (HELENA's mother insurance) and [place] Medicaid. ? ? 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 ?Reports plan to return to work after at least 6-8 weeks. ?MOB's family helping HELENA out as needed. ? Supplies:??MOB reports to have car seat, pack-n-play, crib, clothing, diapers, wipes, bottles, and will use WIC to purchase formula. ? Childcare/Caregiver(s):?MOB and then when HELENA works, the infant's paternal great grandmother and a paterna great aunt provide childcare to Marty; would also provide care to Dwayne.?? ? Transportation:?HELENA has a contract driver's license but no car. ?MOB is reliant on HELENA's parents or FOB's mother. ? ? Programs/Agencies Involved:?MOB reports to have medical through [facility]. ?Reports to have WIC. ?MOB denies any other current agency involvement. ?MOB agrees to Early Intervention referral through [facility]. ? ? Legal/Children Services History:??MOB denies legal issues. ?MOB had a case with [facility] ([facility] after the of Marty who was exposed to substances in utero and with subsequent hospitalization at [facility] for treatment related to AMY. ?MOB went home with a [address], that HELENA and Marty would be with HELENA's mother Helena Tarango. ?MOB reports the case was open for 30-60 days. No current case reported. ?? ? Behavioral Health Issues:? Mental Health: ?MOB reports history of depression, anxiety, and had some depression after the of Marty. ?HELENA started on Zoloft after Marty was born, stayed on for a while and then went off. ?MOB reports restarted the antidepressant after initiating care in April 2018. ?MOB reports was on 50 mg and since delivery dosage upped to 100 mg a day. ???MOB denies any thoughts, plans, intent, or past attempts at suicide since aMrty was born or during this . ?MOB endorses some thoughts of dying as a teen, but no plans or attempts, nothing as an adult. ?No endorsement of any homicidal thoughts or history of self injury. ? Substance Use History: ??Records indicate that MOB has been using substances off and on since the age of 18. ?MOB reports opiates as drug of choice. ?MOB reports that during this , can't really be sure what has used as MOB reports one doesn't really know what one is getting these days (in regards to type of substance), but reports used heroin and fentanyl. ??MOB reports used by snorting, denies any IV use history. MOB denies subutex or suboxone use. ?MOB denies pill usage or other narcotics other than the drugs endorsed above. ?MOB denies alcohol use, marijuana use, cocaine, methamphetamine, or even tobacco use. ?? Maternal Usage during :??MOB reports was using prior to knowledge, and found out about when presented to [facility] program for detox. ?Opiates present at that time. ?[facility] unable to help patient due to status and MOB recommended to go to an [facility] for detox. ?MOB reports did not do this, but stopped using on own. ?MOB reports then started using again for about a month in January 2018 and then was able to stop using again and be clean for delivery. ?MOB unable provide specific date of sobriety/last use of drugs to this blurb writer but reports belief sometime in January 2018. ?? Maternal Treatment History: ?MOB has history of counseling at [facility] as a teen. ??MOB did have an assessment with [facility] after Marty was born. ?MOB reports went to [facility] substance use [place] [facility] [place]. ?MOB reports after release from [facility] was attending 12 step meetings in [place] for a while. ?No current treatment for MOB currently. ??? Drug screens: ?As social group worker from hospital of delivery, this blurb writer is aware of MOB with positive drug screen for opiates in November when presenting for detox. MOB with negative drug screens at start of PNC on 05.22.2018 and then negative at delivery on 06.16.2018. ??Baby's urine drugs screen and suboxone screen negative. ?Meconium is pending. ?? ? Family?and or Social?Stressors/Concerns: MOB with unplanned and admits at the beginning was uncertain whether wanted to continue on with , which MOB reports in part impacted MOB seeking out medical care. ?MOB denies any thoughts of adoption, and that when decided to keep decided to keep and parent baby. ?? MOB and FOB both struggling with addiction, FOB in residential treatment during this . ?MOB with intermittent sobriety during this , with last reported use of any substances in January timeframe 2017. ?MOB with history of depression and anxiety, just restarted antidepressant medication about a month ago. ?Other than medicine no current treatment for mental health or substance use established for MOB. ?MOB reports to know what needs to do for sobriety, needs to get back to meetings and needs to get a sponsor. ?MOB reports to need someone to tell MOB that MOB has to do things, which MOB reports will motivate MOB to follow through. ?MOB reports that has even been considering going into [facility] residential [facility] in [place], as MOB reports worry about baby and impending children services involvement. ?MOB reports that does not want to lose any of her children. ??? MOB reports it has been hard to remain at the hospital with Dwayne, as feels like needs to be with Marty as well as MOB feels more comfortable in home environment. ? MOB also reports to be struggling that others are judging MOB for having a second child going through withdrawal, and that MOB does not want to be seen in this light by others. ? Support Systems:?MOB reports emotional support from MOB's mother and father. ?Practical support by both MOB's side and FOB's sides of the family. ??MOB reports that really is surrounded by many people who are willing to help MOB and FOB out with the kids. ? Assessment MOB has already been discharged as a patient from [facility], but social group worker was unable to meet with MOB prior to discharging on 06-18-2018. Per Chart review MOB was recommended by doctor to stay until Tuesday, but MOB chose to leave on Tuesday. MOB is reporting last use of any substance, other than what has been prescribed as the January timeframe. ?This blurb writer was approached by hospital of delivery nursing staff indicating concerns that MOB exhibiting signs of possible withdrawal (agitation, anxious, depressed, shivering, and laying in bed in dark) when MOB was a patient and that MOB insistent on an early discharge from the hospital. ??This blurb writer was informed that after MOB left the hospital and returned that MOB was laughing, happy, talkative. ??Addressed with MOB concerns relayed to this blurb writer. MOB reports belief that was dealing with depression, that tends to want to isolate and being at home was a comfort zone for MOB. ?Additionally, MOB reports belief that the pain medicine HELENA was given in the hospital tricked MOB's brain into thinking that may be going through withdrawal, since it had not been that long ago that MOB had stopped using. ??MOB reports last use of any opiate was on Tuesday morning 06.18.2018 when MOB was a patient at [facility]. MOB reports last use of non prescribed opiates as reported to this blurb writer in January 2018 timeframe. ?MOB reports did fill the opiate prescription given at time of discharge from [facility] however, but reports has not used any of the pills so far. ??MOB reports that if pain becomes great may end up using as prescribed, but thus far managing pain from caesarian section with motrin only. ?Talked with MOB about considering giving the prescription to MOB's mother to hold for MOB, so as to take away any enticement MOB have during this vulnerable period. MOB reports has thought of this but also thinks as a 27 year old should not have to be asking for help. ?Talked with MOB about it being okay, at any age, to ask for help. ?Broached recovery with MOB some ideas of the 12 step program. ?Encouraged MOB to think about this suggestion of not keeping the opiates in MOB's bedroom, letting others help, but ?that ultimately this up to MOB. ?MOB does report that will do anything in order to keep her children. ?Explored with MOB what MOB wants anything means to MOB/what MOB is willing to do. ?MOB reports willingness to go to [facility] for a drug and alcohol assessment, talk about possible residential treatment. ??MOB asks if this blurb writer can assist with initial referral as reports belief that if someone tells MOB to go and the appointment is set, this will be one less thing for MOB to make an excuse for. ???MOB signed release of information to [employer] (on [facility] and [facility] releases). Emotional support and encouragement given to MOB today; encouraging open communication. ?Thanked MOB for talking with social group worker and for cooperation in what MOB did share with this blurb writer today. ?MOB pleasant and cooperative with this blurb writer. ?MOB spontaneous in conversation. MOB did stay on task overall regarding to topics being discussed. ?Affect constricted overall. Tearful intermittently when discussing baby's current status, as well as thoughts and feelings regarding how MOB perceives other are looking (or judging) at MOB. MOB held fair eye contact. ??Note, when this blurb writer sat beside MOB in darkened space beside the baby's crib, this blurb writer did observed MOB to have small, almost pinpoint, pupils. ?Speech within normal limits, no slurring. MOB alert, and motor activity calm outside of crying episodes. ? Plan MOB has been discharged as a patient from [facility]. Social work will continue to follow MOB and family while the baby is admitted to the [facility]. MOB will be provided with resources for treatment, will be making a children services referral of which MOB is aware of, and MOB has agreed to an Early Intervention referral. ? ? RADHA Alonso
--- NOTE | 2018-06-21 11:40 | CASEMGMT ---
Social Work Labor and Delivery Unit MOB signed a release of information to [facility] on 06-20-18. Called said agency today and left message for Hemalatha in the intake department of need for a call back to arrange intake appointment. Referral to [facility] today providing brief maternal and histories. Included in reports concerns identified by the nursing staff about MOB's behaviors, actions, and also with level of interaction with baby during patient/mother of baby's hospital stay. A case will be opened for investigation . -RADHA Horta, COMMERCIAL ADMINISTRATOR
== END 2018-06-18 09:15 | disposition home or self-care (01) | DRG 540 ==
PROVIDERS: Admitting Provider Obstetrics & Gynecology; Family Provider Family Medicine; PCP Family Medicine; Visit Provider Obstetrics & Gynecology
PROC: 10D00Z1 Extraction of Products of Conception, Low, Open Approach (ICD-10-PCS; CPT 59514; principal; 2018-06-16 07:15)
DX: O99.344 Other mental disorders complicating childbirth (principal); O34.211 Maternal care for low transverse scar from previous cesarean delivery; O77.0 Labor and delivery complicated by meconium in amniotic fluid; O69.81X0 Labor and delivery complicated by cord around neck, without compression, not applicable or unspecified; F41.8 Other specified anxiety disorders; O99.214 Obesity complicating childbirth; Z3A.39 39 weeks gestation of pregnancy; Z37.0 Single live birth; Z79.899 Other long term (current) drug therapy; Z68.41 Body mass index [BMI] 40.0-44.9, adult
CPT/HCPCS: 80307; 85025; 85027; 85610; 85730; 86850; 86900; 93005; 99218; J7120; A4216; G0378; J2405

== ENCOUNTER 2018-11-22 13:57 | Observation (INO) | payer MEDICAID, SELFPAY ==
[2018-06-13 11:53] VITALS: BMI 40.6
[2018-11-22 14:26] VITALS: BMI 37.1
[2018-11-22 14:27] VITALS: BMI 37.1
[2018-11-22 14:33] VITALS: BP 119/68; PULSE 79; RESP 16; TEMP 36.6; O2SAT 96
[2018-11-22 14:51] VITALS: BP 119/68; PULSE 75; RESP 18; TEMP 37
[2018-11-22 14:55] VITALS: PULSE 75
[2018-11-22 15:06] LABS: Amphetamine Urine VISTA NEGATIVE (<1000 ng/mL); Barbiturate Urine VISTA NEGATIVE (< 200 ng/mL); Benzodiazepine Urine VISTA NEGATIVE (< 200 ng/mL); Cocaine Urine VISTA NEGATIVE (< 300 ng/mL); Ecstacy Urine VISTA NEGATIVE (< 500 ng/mL); Methadone Urine VISTA NEGATIVE (< 300 ng/mL); PCP Urine VISTA NEGATIVE (< 25 ng/mL); THC Urine VISTA NEGATIVE (< 50 ng/mL); Vista UDS pH Range 5
[2018-11-22] MEDS: Acetaminophen 500 MG Tablet PO (15:13)
--- NOTE | 2018-11-22 15:19 | PCM.HP.STD ---
<Irina Lomax - Last Filed: 11/22/18 15:49> Problem List (1) Previous delivery affecting , antepartum Status: Chronic (2) Drug abuse Status: Chronic (3) Obesity (BMI 30-39.9) Status: Chronic History of Present Illness Date of Admission: 11/22/18 Chief Complaint: Opioid withdrawal. The patient is a 28 year old F who presents through [facility] program for opioid withdrawal. She was admitted through [facility] for the same in November 2017. She has a history of snorting heroin/fentanyl for the last 10 years. She has been through multiple detox programs, most recently August 2018 where she then was admitted to inpatient treatment facility and signed out AGAINST MEDICAL ADVICE. She reports she began using shortly afterwards. She currently complains of anxiety, restlessness. She last used fentanyl last night around 11 PM. She denies alcohol or other drug use. Denies tobacco use. Her other past medical history includes anxiety, depression, obesity. Past Medical History Past Medical History (Chronic Problems): Chronic Problems Previous delivery affecting , antepartum (Chronic) Drug abuse (Chronic) Obesity (BMI 30-39.9) (Chronic) Allergies Sulfa (Sulfonamide Antibiotics) Allergy (Verified 06/13/18 11:55) Anaphylaxis breathing issues Home Medications: Ambulatory Orders Medication Instructions Recorded Sertraline HCl [Zoloft] 50 mg PO DAILY 06/13/18 Trazodone HCl 100 mg PO QHS PRN PRN #14 tab 06/18/18 Surgical History: - - x 2, bone marrow biopsy. Psychiatric History: No pertinent psych hx TECHNOLOGIST DEVELOPMENT History: No pertinent TECHNOLOGIST DEVELOPMENT history Lives: With Family Smoking Status: Never smoker Tobacco Use: Non-smoker Alcohol: None Drugs: - - Heroin, fentanyl - *Family History Maternal History Items: - - Mother w/ osteoarthritis. Maternal aunt with lupus. Paternal History Items: - - Denies known paternal medical history. States he does not go to the doctor. Review of Systems Constitutional: Denies: Chills, Fever, Weight Change HEENT: Denies: Head Aches, Sinus Congestion, Sinus Drainage Cardiovascular: Denies: Chest Pain, Palpitations Respiratory: Denies: Cough, Shortness of breath at rest, Sputum production Gastrointestinal: Denies: Abdominal Pain, Nausea, Vomiting Genitourinary: Denies: Dysuria Musculoskeletal: Denies: Joint Pain, Joint Tenderness Skin: Denies: Rash, Wounds Neurological: Denies: Numbness, Tingling, Focal weakness Psychiatric: Reports: Anxiety, Depression Hematologic/ Lymphatic: Denies: Easy Bruising, Easy Bleeding VTE Information - Inpt Only VTE Present on Admission: No VTE Mechan Device Prophylaxis: None VTE Pharm Prophylaxis ordered?: No Reason prophylaxis not ordered:: Treatment Not Indicated - Physical Exam General: Alert, Oriented x3, Cooperative HEENT: Atraumatic, PERRLA, EOMI, Normocephalic Neck: Supple, No JVD, Negative Carotid Bruits Lungs: Clear to auscultation, Normal air movement Cardiovascular: Regular rate, Regular Rhythm, Normal S1, Normal S2, No murmurs Abdomen: Bowel Sounds Present, Soft, Non Tender, Non-Distended Extremities: No clubbing, No cyanosis, No edema, Capillary Refill Less than 3 Seconds Skin: No rashes, No breakdown Musculoskeletal: No Tenderness to Palpation of Joints or Extremities Neurological: Cranial nerves II-XII grossly intact, Neuro grossly intact Psych/Mental Status: Normal Affect, Appropriate Vital Signs Temp Pulse Resp BP Pulse Ox 98.6 F 75 18 119/68 96 11/22/18 14:51 11/22/18 14:55 11/22/18 14:51 11/22/18 14:51 11/22/18 14:33 Oxygen Delivery Method Room Air Weight: 184 lb Body Mass Index (BMI) 37.1 Laboratory Tests Past 24 Hrs 11/22/18 11/22/18 11/22/18 14:51 14:55 14:55 WBC Pending RBC Pending Hgb Pending Hct Pending MCV Pending MCH Pending MCHC Pending RDW Pending RDW Differential Pending Plt Count Pending Neut % (Auto) Pending Absolute Neuts (auto) Pending Total Counted Pending Sodium Pending Potassium Pending Chloride Pending Carbon Dioxide Pending Anion Gap Pending BUN Pending Creatinine Pending Est GFR (MDRD) Af Amer Pending Est GFR (MDRD) Non-Af Pending BUN/Creatinine Ratio Pending Glucose Pending Calcium Pending Total Bilirubin Pending AST Pending ALT Pending Alkaline Phosphatase Pending Total Protein Pending Albumin Pending Serum , Qual Urine Opiates Screen NEGATIVE Urine Methadone Screen NEGATIVE Ur Barbiturates Screen NEGATIVE Ur Phencyclidine Scrn NEGATIVE Ur Amphetamines Screen NEGATIVE U Methamphetamin-MDMA NEGATIVE U Benzodiazepines Scrn NEGATIVE Urine Cocaine Screen NEGATIVE U Cannabinoids Screen NEGATIVE Ur Drug Screen Comment Ethyl Alcohol 11/22/18 11/22/18 14:55 14:55 WBC RBC Hgb Hct MCV MCH MCHC RDW RDW Differential Plt Count Neut % (Auto) Absolute Neuts (auto) Total Counted Sodium Potassium Chloride Carbon Dioxide Anion Gap BUN Creatinine Est GFR (MDRD) Af Amer Est GFR (MDRD) Non-Af BUN/Creatinine Ratio Glucose Calcium Total Bilirubin AST ALT Alkaline Phosphatase Total Protein Albumin Serum , Qual Pending Urine Opiates Screen Urine Methadone Screen Ur Barbiturates Screen Ur Phencyclidine Scrn Ur Amphetamines Screen U Methamphetamin-MDMA U Benzodiazepines Scrn Urine Cocaine Screen U Cannabinoids Screen Ur Drug Screen Comment Ethyl Alcohol Pending Assessment/Plan 1. Acute opioid withdrawal-urine tox screen unremarkable. Medical stabilization per protocol. Serum negative. CBC, CMP unremarkable. Librium taper. PRN regimen for somatic complaints. Further discharge planning per [facility] coordinator. 2. Anxiety/depression-continue home trazodone, sertraline regimen. 3. Obesity-encouraged diet lifestyle modifications. DVT prophylaxis-not indicated, low risk. This patient was seen by MYNOR Zavala under the supervision of Dr. Calvillo. <Ivelisse Calvillo E - Last Filed: 11/22/18 16:00> History of Present Illness The patient is a 28 year old F [] Past Medical History Allergies Sulfa (Sulfonamide Antibiotics) Allergy (Verified 06/13/18 11:55) Anaphylaxis breathing issues - Physical Exam Vital Signs Temp Pulse Resp BP Pulse Ox 98.6 F 75 18 119/68 96 11/22/18 14:51 11/22/18 14:55 11/22/18 14:51 11/22/18 14:51 11/22/18 14:33 Oxygen Delivery Method Room Air Weight: 184 lb Body Mass Index (BMI) 37.1 Laboratory Tests Past 24 Hrs 11/22/18 11/22/18 11/22/18 14:51 14:55 14:55 WBC 3.6 L RBC 4.39 Hgb 12.2 Hct 38.3 MCV 87.2 MCH 27.8 MCHC 31.9 L RDW 13.8 RDW Differential 43.0 Plt Count 277 MPV 9.0 Immature Gran % (Auto) 0.000 Neut % (Auto) 38.4 L Lymph % (Auto) 51.5 H Davie % (Auto) 9.5 Eos % (Auto) 0.0 Baso % (Auto) 0.6 Absolute Neuts (auto) 1.4 L Absolute Lymphs (auto) 1.85 Total Counted Not Reportable Sodium 142 Potassium 4.4 Chloride 105 Carbon Dioxide 31.0 Anion Gap 6 BUN 14 Creatinine 0.75 Estim Creat Clear Calc 149.77 Est GFR (MDRD) Af Amer 119 Est GFR (MDRD) Non-Af 99 BUN/Creatinine Ratio 18.6 Glucose 81 Calcium 9.2 Total Bilirubin 0.40 AST 17 ALT 25 Alkaline Phosphatase 46 Total Protein 7.0 Albumin 3.9 Globulin 3.1 Albumin/Globulin Ratio 1.3 Serum , Qual Urine Opiates Screen NEGATIVE Urine Methadone Screen NEGATIVE Ur Barbiturates Screen NEGATIVE Ur Phencyclidine Scrn NEGATIVE Ur Amphetamines Screen NEGATIVE U Methamphetamin-MDMA NEGATIVE U Benzodiazepines Scrn NEGATIVE Urine Cocaine Screen NEGATIVE U Cannabinoids Screen NEGATIVE Ur Drug Screen Comment Ethyl Alcohol 11/22/18 11/22/18 14:55 14:55 WBC RBC Hgb Hct MCV MCH MCHC RDW RDW Differential Plt Count MPV Immature Gran % (Auto) Neut % (Auto) Lymph % (Auto) Davie % (Auto) Eos % (Auto) Baso % (Auto) Absolute Neuts (auto) Absolute Lymphs (auto) Total Counted Sodium Potassium Chloride Carbon Dioxide Anion Gap BUN Creatinine Estim Creat Clear Calc Est GFR (MDRD) Af Amer Est GFR (MDRD) Non-Af BUN/Creatinine Ratio Glucose Calcium Total Bilirubin AST ALT Alkaline Phosphatase Total Protein Albumin Globulin Albumin/Globulin Ratio Serum , Qual NEGATIVE Urine Opiates Screen Urine Methadone Screen Ur Barbiturates Screen Ur Phencyclidine Scrn Ur Amphetamines Screen U Methamphetamin-MDMA U Benzodiazepines Scrn Urine Cocaine Screen U Cannabinoids Screen Ur Drug Screen Comment Ethyl Alcohol 5.0 Assessment/Plan Hospitalist note: I am seeing this patient in conjunction with Irina Lomax. I independently seen and examined the patient. History and physical above and laboratory data reviewed and concur with the above admission and treatment plan. Patient presented to the [facility] office requesting admission for acute opiate withdrawal for medical stabilization. She has been snorting fentanyl and heroin over the last 10 years. She has been through multiple detox programs most recent one was in July, but she relapsed. Her last use was last night at 11 PM. She presented to the [facility] office today because of symptoms of restlessness and anxiety, started since last night, associated with tremors, at this time, his vital signs are stable. Has been progressive and without aggravating or relieving factors. Has been productive remarkable for mild leukopenia and mild neutropenia, other routine blood is unremarkable. Urine drug screen was negative. Serum test was negative. Blood alcohol level is 5. - Physical Exam General: Alert, Oriented x3, Cooperative, No apparent distress. HEENT: Atraumatic, PERRLA, EOMI. Neck: Supple, No JVD, Negative Carotid Bruits, Trachea Midline, Thyroid Normal. Lungs: Clear to auscultation, Normal air movement, No rhonchi, No wheeze, No rales. Cardiovascular: Regular rate, Regular Rhythm, Normal S1, Normal S2, PMI Normal. Abdomen: Bowel Sounds Present, Soft, Non Tender, Non-Distended, No Hepato-splenomegaly. Extremities: No clubbing, No cyanosis, No edema Skin: No rashes, No breakdown Neurological: Neuro grossly intact Vital Signs are stable. Assessment and plan: #1 acute opiate withdrawal: Admit to MedSurg floor, initiate [facility] protocol with tapering course of Librium, PRN Catapres, Bentyl, Vistaril, methocarbamol, Zofran, Mirapex and trazodone. #2 mild leukopenia/mild neutropenia: Without fever, unclear etiology. Plan to monitor, repeat CBC tomorrow morning. #3 other chronic medical problems: Stable, continue current medications as above. This note was generated with [employer] dictation software. It may contain incorrect words, spelling, and punctuation that were not noted in checking the note before signing. Code Visit Inpatient E&M: 13682 Init Hosp L2
[2018-11-22 15:21] LABS: Absolute Lymphocyte Count 1.85 X10^3/ul (0.83-4.51); Absolute Neutrophil Count 1.4 X10^3/uL (2.0-7.7); Basophil# 0.02 X10^3/uL; Basophil% 0.6 % (0-1); Hematocrit 38.3 % (37-47); Hemoglobin 12.2 g/dl (12.0-15.0); Lymphocyte # 1.85 X10^3/ul (4.0); Lymphocyte % 51.5 % (19-41); Mean Corp Hgb Conc 31.9 g/gl (32-36); Mean Corpuscular Hgb 27.8 pg (27.0-32.0); Mean Corpuscular Volume 87.2 fL (81-99); Monocyte# 0.34 X10^3/uL; Monocyte% 9.5 % (0-10); Neutrophil # 1.38 X10^3/uL (2.7-7.7); Neutrophil % 38.4 % (47-70); Platelet Count 277 K/mm3 (150-450); RBC Distribution Width CV 13.8 % (11.6-14.6); Red Blood Count 4.39 M/mm3 (4.2-5.4); White Blood Count 3.6 K/mm3 (4.4-11.0)
--- NOTE | 2018-11-22 15:22 | HP.PCM_ITS ---
<Irina Lomax - Last Filed: 11/22/18 15:49> Problem List (1) Previous delivery affecting , antepartum Status: Chronic (2) Drug abuse Status: Chronic (3) Obesity (BMI 30-39.9) Status: Chronic History of Present Illness Date of Admission: 11/22/18 Chief Complaint: Opioid withdrawal. The patient is a 28 year old F who presents through [facility] for opioid withdrawal. She was admitted through [facility] for the same in November 2017. She has a history of snorting heroin/fentanyl for the last 10 years. She has been through multiple detox programs, most recently August 2018 where she then was admitted to inpatient treatment facility and signed out AGAINST MEDICAL ADVICE. She reports she began using shortly afterwards. She currently complains of anxiety, restlessness. She last used fentanyl last night around 11 PM. She denies alcohol or other drug use. Denies tobacco use. Her other past medical history includes anxiety, depression, obesity. Past Medical History Past Medical History (Chronic Problems): Chronic Problems Previous delivery affecting , antepartum (Chronic) Drug abuse (Chronic) Obesity (BMI 30-39.9) (Chronic) Allergies Sulfa (Sulfonamide Antibiotics) Allergy (Verified 06/13/18 11:55) Anaphylaxis breathing issues Home Medications: Ambulatory Orders Medication Instructions Recorded Sertraline HCl [Zoloft] 50 mg PO DAILY 06/13/18 Trazodone HCl 100 mg PO QHS PRN PRN #14 tab 06/18/18 Surgical History: - - x 2, bone marrow biopsy. Psychiatric History: No pertinent psych hx [employer] History: No pertinent [employer] history Lives: With Family Smoking Status: Never smoker Tobacco Use: Non-smoker Alcohol: None Drugs: - - Heroin, fentanyl - *Family History Maternal History Items: - - Mother w/ osteoarthritis. Maternal aunt with lupus. Paternal History Items: - - Denies known paternal medical history. States he does not go to the doctor. Review of Systems Constitutional: Denies: Chills, Fever, Weight Change HEENT: Denies: Head Aches, Sinus Congestion, Sinus Drainage Cardiovascular: Denies: Chest Pain, Palpitations Respiratory: Denies: Cough, Shortness of breath at rest, Sputum production Gastrointestinal: Denies: Abdominal Pain, Nausea, Vomiting Genitourinary: Denies: Dysuria Musculoskeletal: Denies: Joint Pain, Joint Tenderness Skin: Denies: Rash, Wounds Neurological: Denies: Numbness, Tingling, Focal weakness Psychiatric: Reports: Anxiety, Depression Hematologic/ Lymphatic: Denies: Easy Bruising, Easy Bleeding VTE Information - Inpt Only VTE Present on Admission: No VTE Mechan Device Prophylaxis: None VTE Pharm Prophylaxis ordered?: No Reason prophylaxis not ordered:: Treatment Not Indicated - Physical Exam General: Alert, Oriented x3, Cooperative HEENT: Atraumatic, PERRLA, EOMI, Normocephalic Neck: Supple, No JVD, Negative Carotid Bruits Lungs: Clear to auscultation, Normal air movement Cardiovascular: Regular rate, Regular Rhythm, Normal S1, Normal S2, No murmurs Abdomen: Bowel Sounds Present, Soft, Non Tender, Non-Distended Extremities: No clubbing, No cyanosis, No edema, Capillary Refill Less than 3 Seconds Skin: No rashes, No breakdown Musculoskeletal: No Tenderness to Palpation of Joints or Extremities Neurological: Cranial nerves II-XII grossly intact, Neuro grossly intact Psych/Mental Status: Normal Affect, Appropriate Vital Signs Temp Pulse Resp BP Pulse Ox 98.6 F 75 18 119/68 96 11/22/18 14:51 11/22/18 14:55 11/22/18 14:51 11/22/18 14:51 11/22/18 14:33 Oxygen Delivery Method Room Air Weight: 184 lb Body Mass Index (BMI) 37.1 Laboratory Tests Past 24 Hrs 11/22/18 11/22/18 11/22/18 14:51 14:55 14:55 WBC Pending RBC Pending Hgb Pending Hct Pending MCV Pending MCH Pending MCHC Pending RDW Pending RDW Differential Pending Plt Count Pending Neut % (Auto) Pending Absolute Neuts (auto) Pending Total Counted Pending Sodium Pending Potassium Pending Chloride Pending Carbon Dioxide Pending Anion Gap Pending BUN Pending Creatinine Pending Est GFR (MDRD) Af Amer Pending Est GFR (MDRD) Non-Af Pending BUN/Creatinine Ratio Pending Glucose Pending Calcium Pending Total Bilirubin Pending AST Pending ALT Pending Alkaline Phosphatase Pending Total Protein Pending Albumin Pending Serum , Qual Urine Opiates Screen NEGATIVE Urine Methadone Screen NEGATIVE Ur Barbiturates Screen NEGATIVE Ur Phencyclidine Scrn NEGATIVE Ur Amphetamines Screen NEGATIVE U Methamphetamin-MDMA NEGATIVE U Benzodiazepines Scrn NEGATIVE Urine Cocaine Screen NEGATIVE U Cannabinoids Screen NEGATIVE Ur Drug Screen Comment Ethyl Alcohol 11/22/18 11/22/18 14:55 14:55 WBC RBC Hgb Hct MCV MCH MCHC RDW RDW Differential Plt Count Neut % (Auto) Absolute Neuts (auto) Total Counted Sodium Potassium Chloride Carbon Dioxide Anion Gap BUN Creatinine Est GFR (MDRD) Af Amer Est GFR (MDRD) Non-Af BUN/Creatinine Ratio Glucose Calcium Total Bilirubin AST ALT Alkaline Phosphatase Total Protein Albumin Serum , Qual Pending Urine Opiates Screen Urine Methadone Screen Ur Barbiturates Screen Ur Phencyclidine Scrn Ur Amphetamines Screen U Methamphetamin-MDMA U Benzodiazepines Scrn Urine Cocaine Screen U Cannabinoids Screen Ur Drug Screen Comment Ethyl Alcohol Pending Assessment/Plan 1. Acute opioid withdrawal-urine tox screen unremarkable. Medical stabilization per protocol. Serum negative. CBC, CMP unremarkable. Librium taper. PRN regimen for somatic complaints. Further discharge planning per [facility] coordinator. 2. Anxiety/depression-continue home trazodone, sertraline regimen. 3. Obesity-encouraged diet lifestyle modifications. DVT prophylaxis-not indicated, low risk. This patient was seen by MYNOR Zavala under the supervision of Dr. Calvillo. <Ivelisse Calvillo E - Last Filed: 11/22/18 16:00> History of Present Illness The patient is a 28 year old F [] Past Medical History Allergies Sulfa (Sulfonamide Antibiotics) Allergy (Verified 06/13/18 11:55) Anaphylaxis breathing issues - Physical Exam Vital Signs Temp Pulse Resp BP Pulse Ox 98.6 F 75 18 119/68 96 11/22/18 14:51 11/22/18 14:55 11/22/18 14:51 11/22/18 14:51 11/22/18 14:33 Oxygen Delivery Method Room Air Weight: 184 lb Body Mass Index (BMI) 37.1 Laboratory Tests Past 24 Hrs 11/22/18 11/22/18 11/22/18 14:51 14:55 14:55 WBC 3.6 L RBC 4.39 Hgb 12.2 Hct 38.3 MCV 87.2 MCH 27.8 MCHC 31.9 L RDW 13.8 RDW Differential 43.0 Plt Count 277 MPV 9.0 Immature Gran % (Auto) 0.000 Neut % (Auto) 38.4 L Lymph % (Auto) 51.5 H [place] % (Auto) 9.5 Eos % (Auto) 0.0 Baso % (Auto) 0.6 Absolute Neuts (auto) 1.4 L Absolute Lymphs (auto) 1.85 Total Counted Not Reportable Sodium 142 Potassium 4.4 Chloride 105 Carbon Dioxide 31.0 Anion Gap 6 BUN 14 Creatinine 0.75 Estim Creat Clear Calc 149.77 Est GFR (MDRD) Af Amer 119 Est GFR (MDRD) Non-Af 99 BUN/Creatinine Ratio 18.6 Glucose 81 Calcium 9.2 Total Bilirubin 0.40 AST 17 ALT 25 Alkaline Phosphatase 46 Total Protein 7.0 Albumin 3.9 Globulin 3.1 Albumin/Globulin Ratio 1.3 Serum , Qual Urine Opiates Screen NEGATIVE Urine Methadone Screen NEGATIVE Ur Barbiturates Screen NEGATIVE Ur Phencyclidine Scrn NEGATIVE Ur Amphetamines Screen NEGATIVE U Methamphetamin-MDMA NEGATIVE U Benzodiazepines Scrn NEGATIVE Urine Cocaine Screen NEGATIVE U Cannabinoids Screen NEGATIVE Ur Drug Screen Comment Ethyl Alcohol 11/22/18 11/22/18 14:55 14:55 WBC RBC Hgb Hct MCV MCH MCHC RDW RDW Differential Plt Count MPV Immature Gran % (Auto) Neut % (Auto) Lymph % (Auto) [place] % (Auto) Eos % (Auto) Baso % (Auto) Absolute Neuts (auto) Absolute Lymphs (auto) Total Counted Sodium Potassium Chloride Carbon Dioxide Anion Gap BUN Creatinine Estim Creat Clear Calc Est GFR (MDRD) Af Amer Est GFR (MDRD) Non-Af BUN/Creatinine Ratio Glucose Calcium Total Bilirubin AST ALT Alkaline Phosphatase Total Protein Albumin Globulin Albumin/Globulin Ratio Serum , Qual NEGATIVE Urine Opiates Screen Urine Methadone Screen Ur Barbiturates Screen Ur Phencyclidine Scrn Ur Amphetamines Screen U Methamphetamin-MDMA U Benzodiazepines Scrn Urine Cocaine Screen U Cannabinoids Screen Ur Drug Screen Comment Ethyl Alcohol 5.0 Assessment/Plan Hospitalist note: I am seeing this patient in conjunction with Irina Lomax. I independently seen and examined the patient. History and physical above and laboratory data reviewed and concur with the above admission and treatment plan. Patient presented to the [facility] office requesting admission for acute opiate withdrawal for medical stabilization. She has been snorting fentanyl and heroin over the last 10 years. She has been through multiple detox programs most recent one was in July, but she relapsed. Her last use was last night at 11 PM. She presented to the [facility] office today because of symptoms of restlessness and anxiety, started since last night, associated with tremors, at this time, his vital signs are stable. Has been progressive and without aggravating or relieving factors. Has been productive remarkable for mild leukopenia and mild neutropenia, other routine blood is unremarkable. Urine drug screen was negative. Serum test was negative. Blood alcohol level is 5. - Physical Exam General: Alert, Oriented x3, Cooperative, No apparent distress. HEENT: Atraumatic, PERRLA, EOMI. Neck: Supple, No JVD, Negative Carotid Bruits, Trachea Midline, Thyroid Normal. Lungs: Clear to auscultation, Normal air movement, No rhonchi, No wheeze, No rales. Cardiovascular: Regular rate, Regular Rhythm, Normal S1, Normal S2, PMI Normal. Abdomen: Bowel Sounds Present, Soft, Non Tender, Non-Distended, No Hepato- splenomegaly. Extremities: No clubbing, No cyanosis, No edema Skin: No rashes, No breakdown Neurological: Neuro grossly intact Vital Signs are stable. Assessment and plan: #1 acute opiate withdrawal: Admit to MedSurg floor, initiate [facility] protocol with tapering course of Librium, PRN Catapres, Bentyl, Vistaril, methocarbamol, Zofran, Mirapex and trazodone. #2 mild leukopenia/mild neutropenia: Without fever, unclear etiology. Plan to monitor, repeat CBC tomorrow morning. #3 other chronic medical problems: Stable, continue current medications as abov e. This note was generated with [employer] dictation software. It may contain incorrect words, spelling, and punctuation that were not noted in checking the note before signing. Code Visit Inpatient E&M: 61141 Init Hosp L2
[2018-11-22 15:23] LABS: Internal QC Validated? YES +Cl - CLEAR BKGD; Pregnancy, Serum, hCG Quali. NEGATIVE Negative
[2018-11-22 15:24] LABS: POSITIVE COUNT NO; POSITIVE DIFFERENTIAL NO; POSITIVE MORPHOLOGY NO
[2018-11-22 15:28] LABS: ALB/GLOB Ratio 1.3 RATIO (0.9-2.4); AST(SGOT) 17 U/L (15-37); Alanine Aminotransfer ALT/SGPT 25 U/L (13-56); Albumin, Serum 3.9 g/dL (3.2-5.0); Alkaline Phosphatase 46 U/L (45-117); Anion Gap 6 (5-15); BUN 14 mg/dL (7-18); BUN/Creat Ratio 18.6 RATIO (10-20); Calcium,Total 9.2 mg/dL (8.5-10.1); Chloride 105 mmol/L (98-107); Creatinine, Serum 0.75 mg/dL (0.55-1.02); EST Glomerular Filtration Rate 99 mL/min (>60); Est Glom Filt Rate - Afr Amer 119 mL/min (>60); Estimated Creatinine Clearance 149.77 ml/min; Globulin 3.1 g/dL (2.2-4.2); Glucose 81 mg/dL (74-106); Potassium 4.4 mmol/L (3.5-5.1); Sodium Level 142 mmol/L (136-145)
[2018-11-22] MEDS: Pramipexole Di-HCl 0.25 MG Tablet PO (15:43)
[2018-11-22] MEDS: Dicyclomine 10 MG Capsule 20 MG PO (15:43)
[2018-11-22] MEDS: hydrOXYzine PAM 25 MG Capsule 50 MG PO (15:43)
[2018-11-22] MEDS: chlordiazePOXIDE 25 MG Capsule 50 MG PO ×2 (15:43→21:09)
[2018-11-22] MEDS: Ondansetron ODT 4 MG Tablet PO (15:43)
[2018-11-22] MEDS: Methocarbamol 750 MG Tablet PO (15:43)
[2018-11-22] MEDS: cloNIDine HCl 0.1 MG Tablet PO (15:43)
[2018-11-22 20:52] VITALS: BP 101/54; PULSE 76; RESP 16; TEMP 37.1; O2SAT 98
[2018-11-22 20:58] VITALS: BP 101/54; PULSE 76; RESP 16; TEMP 37.1
[2018-11-22] MEDS: traZODone 50 MG Tablet PO (21:09)
[2018-11-23 01:15] VITALS: BP 95/54; PULSE 61; RESP 16; TEMP 36.4; O2SAT 99
[2018-11-23 04:01] VITALS: BP 96/51; PULSE 69; RESP 16; TEMP 36.5; O2SAT 98
[2018-11-23] MEDS: chlordiazePOXIDE 25 MG Capsule 50 MG PO ×2 (04:02→08:24)
[2018-11-23 05:56] LABS: Hemoglobin 11.8 g/dl (12.0-15.0); Mean Corp Hgb Conc 31.9 g/gl (32-36); Mean Corpuscular Hgb 27.8 pg (27.0-32.0); Mean Corpuscular Volume 87.1 fL (81-99); Mean Platelet Vol. 8.6 fl (6.2-12.0); Platelet Count 243 K/mm3 (150-450); RBC Distribution Width CV 13.9 % (11.6-14.6); Red Blood Count 4.25 M/mm3 (4.2-5.4); White Blood Count 3.1 K/mm3 (4.4-11.0)
[2018-11-23 05:57] LABS: Scan Indicated on CBC? Y/N NO
[2018-11-23 08:23] VITALS: BP 91/46; PULSE 77; RESP 16; TEMP 36.4; O2SAT 100
[2018-11-23] MEDS: Sertraline 50 MG Tablet PO (08:24)
[2018-11-23 08:29] VITALS: BP 91/46; PULSE 77; RESP 16; TEMP 36.4
[2018-11-23 12:20] VITALS: BP 91/52; PULSE 81; RESP 16; TEMP 36.7; O2SAT 98
--- NOTE | 2018-11-23 14:58 | PCM.PN.HOSP ---
Subjective: She was seen and examined. No new complaints. Denies any fever or chills or nausea vomiting. Vitals/I&O's: Vital Signs Temp Pulse Resp BP Pulse Ox 98.0 F 81 16 91/52 L 98 11/23/18 12:20 11/23/18 12:20 11/23/18 12:20 11/23/18 12:20 11/23/18 12:20 Oxygen Delivery Method Room Air Weight: 83.461 kg Body Mass Index (BMI) 37.1 Intake and Output for Last 24 Hours 11/21/18 11/22/18 11/23/18 23:59 23:59 23:59 Intake Total 480 / 480 740 / 740 Balance 480 / 480 740 / 740 General: Alert, Oriented x3, Cooperative, No apparent distress HEENT: Atraumatic, PERRLA, EOMI, Normocephalic Oral: Moist Mucosa Neck: Supple Lungs: Clear to auscultation, Normal air movement Cardiovascular: Regular rate, Regular Rhythm, Normal S1, Normal S2, No murmurs Abdomen: Bowel Sounds Present, Soft, Non Tender, Non-Distended, No Hepato-splenomegaly Extremities: No edema Skin: No rashes, No breakdown Musculoskeletal: No Tenderness to Palpation of Joints or Extremities Lymphatic: No Cervical, Supraclavicular, or Inguinal Adenopathy Neurological: Cranial nerves II-XII grossly intact, Neuro grossly intact Psych/Mental Status: Normal Affect, Appropriate Laboratory Results 11/22/18 14:51: Urine Opiates Screen NEGATIVE, Urine Methadone Screen NEGATIVE, Ur Barbiturates Screen NEGATIVE, Ur Phencyclidine Scrn NEGATIVE, Ur Amphetamines Screen NEGATIVE, U Methamphetamin-MDMA NEGATIVE, U Benzodiazepines Scrn NEGATIVE, Urine Cocaine Screen NEGATIVE, U Cannabinoids Screen NEGATIVE 11/22/18 14:55: WBC 3.6 L, RBC 4.39, Hgb 12.2, Hct 38.3, MCV 87.2, MCH 27.8, MCHC 31.9 L, RDW 13.8, RDW Differential 43.0, Plt Count 277, MPV 9.0, Immature Gran % (Auto) 0.000, Neut % (Auto) 38.4 L, Lymph % (Auto) 51.5 H, [place] % (Auto) 9.5, Eos % (Auto) 0.0, Baso % (Auto) 0.6, Absolute Neuts (auto) 1.4 L, Absolute Lymphs (auto) 1.85, Total Counted Not Reportable 11/22/18 14:55: Sodium 142, Potassium 4.4, Chloride 105, Carbon Dioxide 31.0, Anion Gap 6, BUN 14, Creatinine 0.75, Estim Creat Clear Calc 149.77, Est GFR (MDRD) Af Amer 119, Est GFR (MDRD) Non-Af 99, BUN/Creatinine Ratio 18.6, Glucose 81, Calcium 9.2, Total Bilirubin 0.40, AST 17, ALT 25, Alkaline Phosphatase 46, Total Protein 7.0, Albumin 3.9, Globulin 3.1, Albumin/Globulin Ratio 1.3 11/22/18 14:55: Ethyl Alcohol 5.0 11/22/18 14:55: Serum , Qual NEGATIVE 11/23/18 05:21: WBC 3.1 L, RBC 4.25, Hgb 11.8 L, Hct 37.0, MCV 87.1, MCH 27.8, MCHC 31.9 L, RDW 13.9, RDW Differential 44.0 H, Plt Count 243, MPV 8.6 Current Medications Acetaminophen (Tylenol) 500 mg PO Q4H PRN PRN PRN Reason: Temp > 100.4 F Last Admin: 11/22/18 15:13 Dose: 500 mg Chlordiazepoxide (Librium) 50 mg PO Q8H LAINA; Taper Stop: 11/25/18 17:14 Last Admin: 11/23/18 08:24 Dose: 50 mg Clonidine (Catapres) 0.1 mg PO Q2H PRN PRN PRN Reason: Hot/Cold Sweats or Anxiety Last Admin: 11/22/18 15:43 Dose: 0.1 mg Dicyclomine HCl (Bentyl) 20 mg PO Q6H PRN PRN PRN Reason: Abdomnial Discomfort Last Admin: 11/22/18 15:43 Dose: 20 mg Hydroxyzine Pamoate (Vistaril Pamoate Capsule) 50 mg PO Q6H PRN PRN PRN Reason: Mild Anxiety Last Admin: 11/22/18 15:43 Dose: 50 mg Methocarbamol (Methocarbamol) 750 mg PO Q6H PRN PRN PRN Reason: Muscle Aches Last Admin: 11/22/18 15:43 Dose: 750 mg Ondansetron HCl (Zofran Odt) 4 mg PO Q6H PRN PRN PRN Reason: NAUSEA Last Admin: 11/22/18 15:43 Dose: 4 mg Pramipexole Dihydrochloride (Mirapex) 0.25 mg PO Q12H PRN PRN PRN Reason: Restless Legs Last Admin: 11/22/18 15:43 Dose: 0.25 mg Sertraline HCl (Zoloft) 50 mg PO DAILY [facility] Last Admin: 11/23/18 08:24 Dose: 50 mg Trazodone HCl (Desyrel) 50 mg PO QHS [facility] Last Admin: 11/22/18 21:09 Dose: 50 mg Medical Necessity - Tobacco Use Smoking Status: Never smoker Tobacco Use: Non-smoker Assessment/Plan 28-year-old male history of polysubstance abuse including IV heroin comes in for medical stabilization the [facility] protocol. 1. Acute opioid withdrawal, history of multiple detox, improving on the medical stabilization protocol with [facility]. 2. Anxiety/depression, on trazodone and sertraline 3. Obesity, diet and exercise recommended 4. DVT Prophylaxis with early ambulation Code Visit Inpatient E&M: 21029 Subs Hosp L2
--- NOTE | 2018-11-23 15:01 | PN_ITS ---
Subjective: She was seen and examined. No new complaints. Denies any fever or chills or nausea vomiting. Vitals/I&O's: Vital Signs Temp Pulse Resp BP Pulse Ox 98.0 F 81 16 91/52 L 98 11/23/18 12:20 11/23/18 12:20 11/23/18 12:20 11/23/18 12:20 11/23/18 12:20 Oxygen Delivery Method Room Air Weight: 83.461 kg Body Mass Index (BMI) 37.1 Intake and Output for Last 24 Hours 11/21/18 11/22/18 11/23/18 23:59 23:59 23:59 Intake Total 480 / 480 740 / 740 Balance 480 / 480 740 / 740 General: Alert, Oriented x3, Cooperative, No apparent distress HEENT: Atraumatic, PERRLA, EOMI, Normocephalic Oral: Moist Mucosa Neck: Supple Lungs: Clear to auscultation, Normal air movement Cardiovascular: Regular rate, Regular Rhythm, Normal S1, Normal S2, No murmurs Abdomen: Bowel Sounds Present, Soft, Non Tender, Non-Distended, No Hepato- splenomegaly Extremities: No edema Skin: No rashes, No breakdown Musculoskeletal: No Tenderness to Palpation of Joints or Extremities Lymphatic: No Cervical, Supraclavicular, or Inguinal Adenopathy Neurological: Cranial nerves II-XII grossly intact, Neuro grossly intact Psych/Mental Status: Normal Affect, Appropriate Laboratory Results 11/22/18 14:51: Urine Opiates Screen NEGATIVE, Urine Methadone Screen NEGATIVE, Ur Barbiturates Screen NEGATIVE, Ur Phencyclidine Scrn NEGATIVE, Ur Amphetamines Screen NEGATIVE, U Methamphetamin-MDMA NEGATIVE, U Benzodiazepines Scrn NEGATIVE, Urine Cocaine Screen NEGATIVE, U Cannabinoids Screen NEGATIVE 11/22/18 14:55: WBC 3.6 L, RBC 4.39, Hgb 12.2, Hct 38.3, MCV 87.2, MCH 27.8, MCHC 31.9 L, RDW 13.8, RDW Differential 43.0, Plt Count 277, MPV 9.0, Immature Gran % (Auto) 0.000, Neut % (Auto) 38.4 L, Lymph % (Auto) 51.5 H, [place] % (Auto) 9.5, Eos % (Auto) 0.0, Baso % (Auto) 0.6, Absolute Neuts (auto) 1.4 L, Absolute Lymphs (auto) 1.85, Total Counted Not Reportable 11/22/18 14:55: Sodium 142, Potassium 4.4, Chloride 105, Carbon Dioxide 31.0, Anion Gap 6, BUN 14, Creatinine 0.75, Estim Creat Clear Calc 149.77, Est GFR (MDRD) Af Amer 119, Est GFR (MDRD) Non-Af 99, BUN/Creatinine Ratio 18.6, Glucose 81, Calcium 9.2, Total Bilirubin 0.40, AST 17, ALT 25, Alkaline Phosphatase 46, Total Protein 7.0, Albumin 3.9, Globulin 3.1, Albumin/Globulin Ratio 1.3 11/22/18 14:55: Ethyl Alcohol 5.0 11/22/18 14:55: Serum , Qual NEGATIVE 11/23/18 05:21: WBC 3.1 L, RBC 4.25, Hgb 11.8 L, Hct 37.0, MCV 87.1, MCH 27.8, MCHC 31.9 L, RDW 13.9, RDW Differential 44.0 H, Plt Count 243, MPV 8.6 Current Medications Acetaminophen (Tylenol) 500 mg PO Q4H PRN PRN PRN Reason: Temp > 100.4 F Last Admin: 11/22/18 15:13 Dose: 500 mg Chlordiazepoxide (Librium) 50 mg PO Q8H LAINA; Taper Stop: 11/25/18 17:14 Last Admin: 11/23/18 08:24 Dose: 50 mg Clonidine (Catapres) 0.1 mg PO Q2H PRN PRN PRN Reason: Hot/Cold Sweats or Anxiety Last Admin: 11/22/18 15:43 Dose: 0.1 mg Dicyclomine HCl (Bentyl) 20 mg PO Q6H PRN PRN PRN Reason: Abdomnial Discomfort Last Admin: 11/22/18 15:43 Dose: 20 mg Hydroxyzine Pamoate (Vistaril Pamoate Capsule) 50 mg PO Q6H PRN PRN PRN Reason: Mild Anxiety Last Admin: 11/22/18 15:43 Dose: 50 mg Methocarbamol (Methocarbamol) 750 mg PO Q6H PRN PRN PRN Reason: Muscle Aches Last Admin: 11/22/18 15:43 Dose: 750 mg Ondansetron HCl (Zofran Odt) 4 mg PO Q6H PRN PRN PRN Reason: NAUSEA Last Admin: 11/22/18 15:43 Dose: 4 mg Pramipexole Dihydrochloride (Mirapex) 0.25 mg PO Q12H PRN PRN PRN Reason: Restless Legs Last Admin: 11/22/18 15:43 Dose: 0.25 mg Sertraline HCl (Zoloft) 50 mg PO DAILY [facility] Last Admin: 11/23/18 08:24 Dose: 50 mg Trazodone HCl (Desyrel) 50 mg PO QHS [facility] Last Admin: 11/22/18 21:09 Dose: 50 mg Medical Necessity - Tobacco Use Smoking Status: Never smoker Tobacco Use: Non-smoker Assessment/Plan 28-year-old male history of polysubstance abuse including IV heroin comes in for medical stabilization the [facility] protocol. 1. Acute opioid withdrawal, history of multiple detox, improving on the medical stabilization protocol with [facility]. 2. Anxiety/depression, on trazodone and sertraline 3. Obesity, diet and exercise recommended 4. DVT Prophylaxis with early ambulation Code Visit Inpatient E&M: 91760 Subs Hosp L2
--- NOTE | 2018-11-24 13:15 | DCINST_ITS ---
- Discharge Diagnoses Reason(s) for Visit for Discharge Instructions: Acute opiate withdrawal You will use the following diet at home:: Regular Your food should be the consistency of: Regular Your liquids should be the consistency of: Regular/Thin Discharge Activity: Return to Normal Activity Allergies/Adverse Reactions: Allergies Sulfa (Sulfonamide Antibiotics) Allergy (Verified 06/13/18 11:55) Anaphylaxis breathing issues Medications to take at Discharge Sertraline HCl [Zoloft] 50 mg PO DAILY 06/13/18 Trazodone HCl 100 mg PO QHS PRN PRN #14 tab 06/18/18 Primary Care Physician: Concha Crowder DO [Primary Care Provider] - Test Results: Test results from this visit will be discussed in further detail at your follow- up appointment, if applicable. Proposed Discharge Date: 11/24/18
--- NOTE | 2018-11-24 13:15 | PCM.DC.SUM ---
Discharge Date and Diagnosis Date of Admission: 11/22/18 Date of Discharge: 11/24/18 - Primary Discharge Diagnosis Acute opioid withdrawal - Secondary Discharge Diagnosis Chronic Problems Previous delivery affecting , antepartum (Chronic) Drug abuse (Chronic) Obesity (BMI 30-39.9) (Chronic) Anxiety/depression Hospital Course and Treatment None Operations: None, - - LTCS Procedures: None Summary of Care Provided: 28-year-old female with past history of polysubstance abuse including IV heroin comes in for medical stabilization the [facility] protocol for acute opiate withdrawal. She was admitted to the floor, managed on the [facility] protocol. Patient signed out AMA after 1 day of treatment. Subjective: See progress note of the day Objective: See progress note on the day - Physical Exam Vital Signs Temp Pulse Resp BP Pulse Ox 98.0 F 81 16 91/52 L 98 11/23/18 12:20 11/23/18 12:20 11/23/18 12:20 11/23/18 12:20 11/23/18 12:20 Oxygen Delivery Method Room Air Weight: 83.461 kg Body Mass Index (BMI) 37.1 Intake and Output for Last 24 Hours 11/22/18 11/23/18 11/24/18 23:59 23:59 23:59 Intake Total 480 / 480 740 / 740 Balance 480 / 480 740 / 740 Discharge Diet: No Restrictions Discharge Activity: Return to Normal Activity Home Medications: Medications to take at Discharge Sertraline HCl [Zoloft] 50 mg PO DAILY 06/13/18 Trazodone HCl 100 mg PO QHS PRN PRN #14 tab 06/18/18 Primary Care Physician: Concha Crowder DO [Primary Care Provider] - Disposition: Home Minutes spent on discharge:: 25 Patient Condition:: Stable Medical Necessity - Tobacco Use Smoking Status: Never smoker Tobacco Use: Non-smoker Meaningful Use Info Meaningful Use Diagnoses (Choose all that apply): None applicable Code Visit Inpatient E&M: 25720 Disch Hosp
== END 2018-11-23 17:02 | disposition left against medical advice (07) | DRG 894 ==
PROVIDERS: Nurse Practitioner Family; Admitting Provider Hospitalist; Family Provider Family Medicine; PCP Family Medicine; Referring Provider Hospitalist; Visit Provider Internal Medicine
DX: F11.23 Opioid dependence with withdrawal (principal); E66.9 Obesity, unspecified; Z68.37 Body mass index [BMI] 37.0-37.9, adult; F41.9 Anxiety disorder, unspecified; F32.9 Major depressive disorder, single episode, unspecified; Z79.899 Other long term (current) drug therapy; D70.9 Neutropenia, unspecified
CPT/HCPCS: 36415; 80053; 80307; 80320; 84703; 85025; 85027; 97802; 99218; G0378; G0379; G0480

== ENCOUNTER 2020-01-17 12:58 | Emergency (ER) | payer MEDICAID, SELFPAY ==
[2020-01-17 12:59] VITALS: BP 137/84; PULSE 84; RESP 16; TEMP 36.3; O2SAT 97; BMI 45.6
--- NOTE | 2020-01-17 14:10 | ED.DCSUM_ITS ---
- ER Visit Summary Date of Service: 01/17/20 Chief Complaint: Pain History of Present Illness: The patient is a [address] Burnett. She reports that 2 days ago she opened her jaw very wide and it popped. States that since that time she has had a pain to the left TM joint that is 8 out of 10 currently and 10 out of 10 at worst. Is worsened by opening her mouth all the way. It is relieved by ice, Tylenol. She has had this multiple times in the past. She reports that her chiropractor used to help with this. She does not currently have a dentist. Patient denies any dental pain. No fever, chills, or other complaints. Physical Examination: Vitals: Stable. Afebrile. General: Well-nourished and well-developed. Dental: Moderate tenderness outpatient over the left TM joint. There is no dislocation. She does have decreased range of motion secondary to pain. There is no dental tenderness. No evidence of abscess. Head: Normocephalic atraumatic. Neck: Supple, no lymphadenopathy. No JVD. Nontender. Cardiovascular: Regular rate and rhythm. No murmurs. Respiratory: No respiratory distress. Clear to auscultation bilaterally. Abdominal: Soft, nontender, nondistended, normal bowel sounds. No guarding, rebound, or peritoneal signs. Back: Nontender. Extremities: Nontender, no edema. Skin: Normal color, no rash. Neurologic: Alert and oriented ?3. Cranial nerves II through XII are intact. Normal strength and sensation. Psych: Normal affect. Emergency Department Course and Treatment: Patient was treated with naproxen. She is resting comfortably. Treatment Plan: Patient will be discharged with symptomatic care. Use naproxen for pain. She is on Suboxone. Soft diet. She is given a list of local dentist in the area to follow-up with for further evaluation and treatment. Return to the emergency department for any worsening symptoms. Disposition: To home in improved and stable condition. Impression: 1. Left temporomandibular joint pain. This note was generated with [email or web address] software. It may contain incorrect words, spelling, and punctuation that were not noted in review of the chart prior to signing ED Disposition - Plan for ED Patient: Instructions: ED TMJ Syndrome Prescriptions: Naproxen [Naprosyn] 500 mg PO BID #14 tab Prescription Printed Referrals: Concha Crowder, [Primary Care Provider] - Dentist,Your [STAFF PHYSICIAN] - 3-5 Days if not improving
--- NOTE | 2020-01-17 14:33 | ED.RN ---
went to room to medicate pt and discharge. pt gone/room empty. not in surrounding area
== END 2020-01-17 14:49 | disposition home or self-care (01) ==
PROVIDERS: Emergency Provider Emergency Medicine; PCP Family Medicine
DX: M26.622 Arthralgia of left temporomandibular joint (principal)
CPT/HCPCS: 99282

== ENCOUNTER → 2020-04-14 | Outpatient (CLI) | payer MEDICAID, SELFPAY ==
[2020-04-14 16:40] LABS: ALB/GLOB Ratio 0.9 RATIO (0.9-2.4); AST(SGOT) 17 U/L (15-37); Alanine Aminotransfer ALT/SGPT 29 U/L (13-56); Albumin, Serum 3.7 g/dL (3.2-5.0); Alkaline Phosphatase 58 U/L (45-117); Anion Gap 5 (5-15); BUN 18 mg/dL (7-18); BUN/Creat Ratio 19.6 RATIO (10-20); Calcium,Total 9.4 mg/dL (8.5-10.1); Chloride 103 mmol/L (98-107); Creatinine, Serum 0.92 mg/dL (0.55-1.02); EST Glomerular Filtration Rate 78 mL/min (>60); Est Glom Filt Rate - Afr Amer 94 mL/min (>60); Globulin 4.1 g/dL (2.2-4.2); Glucose 92 mg/dL (74-106); Potassium 4.2 mmol/L (3.5-5.1); Protein, Total 7.8 g/dL (6.4-8.2); Sodium Level 137 mmol/L (136-145)
== END | disposition home or self-care (01) ==
PROVIDERS: PCP Family Medicine; Visit Provider Family Medicine
DX: R74.8 Abnormal levels of other serum enzymes (principal); Z87.898 Personal history of other specified conditions
CPT/HCPCS: 36415; 80053; 86704; 86705; 86706; 86708; 86709; 86803; 87340

== ENCOUNTER → 2020-04-24 | Outpatient (CLI) | payer MEDICAID, SELFPAY ==
[2020-04-28 03:06] LABS: HCV Quant. RNA PCR HCV Not Detected IU/mL (.)
== END | disposition home or self-care (01) ==
LOC: BFHLAB 13:04
PROVIDERS: PCP Family Medicine; Visit Provider Family Medicine
DX: R76.8 Other specified abnormal immunological findings in serum (principal)
CPT/HCPCS: 36415; 87522; 87902

== ENCOUNTER → 2020-04-29 | Outpatient (CLI) | payer MEDICAID, SELFPAY ==
--- NOTE | 2020-04-29 08:00 | CT_ITS ---
STUDY: CT LEFT HAND WITHOUT CONTRAST REASON FOR EXAM: Female, 29 years old patient with dorsal left-sided hand/wrist mass. History of of drug use RADIATION DOSAGE (If Supplied By Facility): CTDIvol = ( 24.58 ) mGy, DLP = ( 788.01 ) mGycm TECHNIQUE: Transaxial CT imaging of the left hand was performed. Sagittal and coronal images were reconstructed. Individualized dose optimization techniques were used for this CT. COMPARISON: None. FINDINGS: The distal radius and ulna, carpal bones, metacarpals and phalanges have generally normal appearance and alignment. There is a mild ulna minus variant. Joint spaces are within normal limits. The visualized skeletal muscles have a grossly normal appearance. The lipomatous soft tissues are prominent of the wrist and distal forearm but is otherwise within normal limits. There is no demonstrated fracture or destructive process. CT/Extremity Upper without Contra IMPRESSION: No CT evidence for soft tissue mass of the dorsal wrist. Electronically Signed: Elma Hatfield MD at 5:56 EDT , Service support ,
== END | disposition home or self-care (01) ==
LOC: CT 07:49
PROVIDERS: PCP Family Medicine; Referring Provider Family Medicine; Visit Provider Family Medicine
DX: M25.532 Pain in left wrist (principal); R22.32 Localized swelling, mass and lump, left upper limb
CPT/HCPCS: 73200

== ENCOUNTER 2020-05-25 10:22 | Emergency (ER) | payer MEDICAID, SELFPAY ==
[2020-05-25 10:23] VITALS: BP 124/83; PULSE 100; RESP 17; TEMP 35.6; O2SAT 100; BMI 47.2
--- NOTE | 2020-05-25 11:40 | ED.VIS.GEN ---
History of Present Illness Chief Complaint: Shortness of Breath Informant: Patient Onset: Yesterday Context: Gradual Onset Timing: Continuous Narrative: Patient is a 29-year-old female with no significant past medical history presenting with concern for Covid infection. 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 Patient states yesterday she noticed that she had loss of taste and smell. She then started to develop headache last night. Today she is had sweats, chills, diarrhea and continued headache. She states that headache is diffuse and viselike in nature. She denies any vision changes. She denies any fever. She was feeling short of breath last night but currently does not. She denies any vision changes. She is had a small sore throat. Patient not take anything for symptoms prior to arrival. No other complaints at this time. Past Medical History - Allergies and Home Meds Allergies/Adverse Reactions: Allergies Sulfa (Sulfonamide Antibiotics) Allergy (Verified 05/25/20 10:23) Anaphylaxis breathing issues Primary Care Physician: Concha Crowder DO [Primary Care Provider] - Past Medical History: None Surgical History: noncontributory, - - x 2, bone marrow biopsy. Smoking Status: Never smoker - Family History Maternal Family History: Reports: - - Mother w/ osteoarthritis. Maternal aunt with lupus. Paternal Family History: Reports: - - Denies known paternal medical history. States he does not go to the doctor. Review of Systems General: Reports: Chills, Malaise, Sweats. Denies: Fever Eyes: Denies: Visual changes - bilaterally, Diplopia ENT: Reports: Sore throat. Denies: Bilateral ear pain, Rhinorrhea Cardiovascular: Denies: Chest pain, Palpitations Respiratory: Reports: Dyspnea, Cough. Denies: Dyspnea on exertion Gastrointestinal: Reports: Diarrhea. Denies: Abdominal pain, Nausea, Vomiting, Melena, Hematochezia Genitourinary: Denies: Dysuria, Hematuria, Frequency Musculoskeletal: Denies: Back pain, Extremity Pain Skin: Denies: Rash, Wounds Neurological: Reports: Headache. Denies: Weakness, Numbness Physical Exam Vital Signs/Narrative: Vital Signs Temp Pulse Resp BP Pulse Ox 05/25/20 10:23 96.0 F L 100 17 124/83 H 100 Inital Vital Signs reviewed: Yes General: Well nourished, Well developed, No Acute Distress Head: Normocephalic, Atraumatic Eyes: Perrl, EOMI ENT: Moist mucous membranes, No rhinorrhea, TM's clear. Negative for: Nasal congestion, Sinus tenderness Neck: Supple, Nontender, No JVD Cardiovascular: Regular rate, Regular rhythm, No murmurs Respiratory: No distress, CTA bilaterally, Chest nontender. Negative for: Rhonchi, Wheezing, Decreased Air Movement Abdomen: Soft, Nontender, Nondistended, Normal bowel sounds Back: Nontender, Normal Inspection. Negative for: CVA tenderness Extremities: Nontender, No edema Skin: Normal color, No rash Neurological: Alert, Oriented x3, Cranial nerves II-XII grossly intact, Normal Strength, Normal Sensation Psychological: Normal affect, Normal Mood Diagnostic/Tx/Re-eval - Medical Decision Making Patient evaluated for 2 days of viral symptoms. Her presentation is consistent with COVID-19 infection. Patient is otherwise well-appearing. Her vital signs are relatively normal. She not having meningeal signs. I suspect this is a tension headache. I do not think a CT or LP is indicated at this time. She is a normal neurologic exam. Patient is not hypoxic and has clear breath sounds. Does not appear dehydrated. She is not have signs of a secondary bacterial infection. Patient will be tested for Covid but do not think a chest x-ray or further work-up is indicated at this time. Patient is comfortable with this. She is given Motrin for headache. Patient is counseled on quarantine precautions and given a work note as well as a note for drug court stating that she needs to quarantine for at least 2 weeks from the onset of her symptoms. Patient is counseled on signs and symptoms requiring return to the emergency room, she difficulty breathing or signs of dehydration. Patient verbalizes agreement and understand this plan. Patient discharged home in stable condition. ED Disposition - Plan for ED Patient: Disposition: Home or Assisted Living Diagnosis: Viral illness, Headache, Suspected COVID-19 virus infection Instructions: ED Viral Syndrome Referrals: Concha Crowder DO [Primary Care Provider] - Additional Instructions: Return to the emergency room if you have a hard time breathing or concern for dehydration. Take ibuprofen, 600 mg, alternate with Tylenol as needed for headache and aches and pains. Is very important that you quarantine for 14 days starting when your symptoms started to prevent spread to others.
[2020-05-25] MEDS: Ibuprofen 600 MG Tablet PO (12:03)
== END 2020-05-25 12:04 | disposition home or self-care (01) ==
LOC: ED 11:55
PROVIDERS: Emergency Provider Emergency Medicine; PCP Family Medicine
DX: U07.1 COVID-19 (principal); R51.9 Headache, unspecified; Z20.828 Contact with and (suspected) exposure to other viral communicable diseases
CPT/HCPCS: 87635; 99282; U0003

== ENCOUNTER → 2020-07-31 14:38 | Outpatient (CLI) | payer MEDICAID, SELFPAY ==
[2020-06-26 08:11] VITALS: BMI 38.3
--- NOTE | 2020-07-31 14:40 | US_ITS ---
HISTORY: Left wrist cyst. Comparison x-rays are from June 26, 2020. Comparison CT scan is from April 29, 2020. 16 images. Findings: Within the region of the palpable lump on left wrist there is an anechoic structure with well-defined margins measuring 9 x 13 x 5 mm. Color Doppler imaging over this area fails to demonstrate flow. This cystic lesion is on the dorsum of the wrist. This was lesion is not identified on the CT scan of April 29, 2020. US/Ext Non Vasc Limited/Soft Tiss IMPRESSION: 9 x 13 x 5 mm cyst on the dorsum of the wrist. This is not identified on the CT of April 29, 2020. Likely represents a ganglion cyst. at 0618 Reported and signed by: Ramo Chaidez MD Electronically Signed: Ramo Chaidez MD at 6:17 EST Tel , Service support ,
== END ==
PROVIDERS: PCP Family Medicine; Referring Provider Orthopaedic Surgery; Visit Provider Orthopaedic Surgery
DX: M25.832 Other specified joint disorders, left wrist (principal); M25.532 Pain in left wrist
CPT/HCPCS: 76882

== ENCOUNTER → 2020-08-30 07:38 | Outpatient (CLI) | payer MEDICAID, SELFPAY ==
[2020-06-26 08:11] VITALS: BMI 38.3
--- NOTE | 2020-08-30 07:39 | MRI_ITS ---
STUDY: MRI LEFT WRIST WITHOUT CONTRAST REASON FOR EXAM: Female, 30 years old. Volar cyst painful area marked with bead TECHNIQUE: Standardized fat and water weighted pulse sequences were obtained in all 3 orthogonal planes. COMPARISON: X-ray June 26, 2020. FINDINGS: Normal visualized distal radius and ulna. Normal distal radioulnar Articulation (DRUJ). Normal triangular fibrocartilaginous complex (TFCC). Normal carpal bones. Normal radiocarpal, intercarpal and midcarpal articulations. Normal pisotriquetral articulation. Normal visualized interosseous scapholunate ligament. Normal visualized dorsal (extrinsic) ligaments. Normal visualized volar (extrinsic) ligaments. Normal extensor tendons. Normal flexor tendons. Normal carpal tunnel with a normal median nerve. Normal carpometacarpal articulation of the thumb. Normal second through fifth carpometacarpal articulations. Normal visualized metacarpal bones. There is 1.4 x 1.1 x 0.6 cm lobular septated fluid collection on the dorsal aspect, deep to the extensor tendons, corresponding to the region of interest, series 6 images and MRI/Upper Ext Joint Only(Routine) IMPRESSION: No fracture or avascular necrosis. No tear of the triangular fibrocartilage complex and scapholunate ligament. Ganglion cyst on the dorsal aspect, corresponding to the region of interest. Electronically Signed: James Albert MD at 15:59 EST , Service support ,
== END ==
PROVIDERS: PCP Family Medicine; Referring Provider Orthopaedic Surgery; Visit Provider Orthopaedic Surgery
DX: M67.432 Ganglion, left wrist (principal); M25.532 Pain in left wrist
CPT/HCPCS: 73221

== ENCOUNTER 2020-11-14 08:34 | Day surgery (SDC) | payer MEDICAID, SELFPAY ==
[2020-10-13 14:41] VITALS: BMI 46.7
--- NOTE | 2020-11-13 19:55 | PCM.HP.BLA ---
History and Physical Date of Admission: 11/14/20 HISTORY OF PRESENT ILLNESS 30 year old woman presents with a soft tissue mass dorsum left wrist at the level of the long finger. It is clinically consistent with a ganglion cyst. She states at rest, there is minimal discomfort. 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 She had a CT left upper extremity on 04/29/20. It showed no CT evidence for soft tissue mass of the dorsal wrist. She had an x-ray left wrist on 06/26/20. It showed normal x-ray examination of the left wrist. She had an Ultrasound left wrist on 07/31/20. It showed 9 x 13 x 5 mm cyst on the dorsum of the wrist. This is not identified on the CT of April 29, 2020. Likely represents a ganglion cyst. She had an MRI left wrist on 08/30/20. It showed 1.4 x 1.1 x 0.6 cm lobular septated fluid collection on the dorsal aspect, deep to the extensor tendons, corresponding to the region of interest, consistent with a ganglion cyst. No fracture or avascular necrosis. No tear of the triangular fibrocartilage complex and scapholunate ligament. She also has complaints of numbness in her thumb, index finger, and long finger bilateral hands that are exacerbated after work. She is right hand dominant. Her right hand is more symptomatic than her left hand. She states she had a NCS about a year ago. She was told everything was ok. She denies trauma. She presents at this time for further evaluation and treatment. 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 She states she was an addict for 13 years and has been clean for 9 months. She gets a monthly injection of Vivitrol. PAST MEDICAL HISTORY Bilateral carpal tunnel syndrome Ganglion cyst of dorsum of left wrist Drug abuse Anxiety and depression PAST SURGICAL HISTORY [facility] History of delivery ALLERGIES Sulfa (Sulfonamide) MEDICATIONS buspirone norgestimate-ethinyl estradiol sertraline trazodone FAMILY HISTORY Grandfather - blood clot, Heart disease Grandmother - Breast cancer Mother - Arthritis, Depression Father - Arthritis Grandfather - Diabetes SOCIAL HISTORY Smoking Status: Never smoker alcohol intake: current substance use type: former substance user Date of last use: December 2019, amphetamines fentanyl REVIEW OF SYSTEMS General - Denies fever, fatigue, and weight loss. Has history of drug abuse. Eyes - Denies cataracts and glaucoma. ENT - Denies nasal congestion and sore throat. Endocrine - Denies excessive thirst and urination. Skin - Denies suspicious lesions and skin cancer. Musculoskeletal - Has joint pain, weakness of muscles and joints, and back pain. Denies joint pain and arthritis. Has left wrist pain in the area of a soft tissue mass consistent with a ganglion cyst. Neuro - Denies headaches. Has numbness thumb, index finger and long finger bilateral hands. Cardiovascular - Denies chest pain, fatigue, and shortness of breath with exertion. Psych - Has anxiety. Has depression. Has claustrophobia. Respiratory - Denies chronic cough and shortness of breath. Gastrointestinal - Denies nausea, vomiting, diarrhea, and constipation. Hematologic - Denies abnormal bruising and bleeding. Genitourinary - Denies hematuria and urinary frequency. PHYSICAL EXAMINATION General - Alert and Oriented. HEENT - PERRL. EOMI. Throat is clear. Neck - Supple and nontender. No cervical adenopathy. Lungs - Clear to auscultation. Heart - Regular rate and rhythm. Abdomen - Soft and nondistended. Extremities - FROM. No axillary adenopathy. Radial pulses are palpable. She is right hand dominant. On the dorsum left wrist at the level of the long finger is a soft tissue mass. It is mobile. Measures 2 cm. Some tenderness to palpation when she flexes her wrist. Overlying the dorsum left hand and wrist is a sun tattoo. She also has decreased sensation to pinprick involving her thumb and index finger and long finger bilateral hands. Negative Tinel's at the wrists. Negative Phalen's test. Negative Tinel's at the cubital tunnel areas. No evidence of thenar atrophy bilaterally. Neuro - CN II-XII grossly intact. Psych - Normal mood and affect. ASSESSMENT 1. 2 cm painful ganglion cyst dorsum left wrist at the level of the long finger. 2. Bilateral carpal tunnel syndrome with numbness, worse on the right. 3. Recovering drug addict (Fentanyl) for 9 months. PLAN Radiological studies reviewed. CT left upper extremity on 04/29/[address] evidence for soft tissue mass of the dorsal wrist. X-ray left wrist on 06/26/20 showed normal x-ray examination of the left wrist. Ultrasound left wrist on 07/31/20 showed 9 x 13 x 5 mm cyst on the dorsum of the wrist. This is not identified on the CT of April 29, 2020. Likely represents a ganglion cyst. MRI left wrist on 08/30/20 showed 1.4 x 1.1 x 0.6 cm lobular septated fluid collection on the dorsal aspect, deep to the extensor tendons, corresponding to the region of interest, consistent with a ganglion cyst. No fracture or avascular necrosis. No tear of the triangular fibrocartilage complex and scapholunate ligament. Recommend excision of the ganglion cyst which can be done under tourniquet control either with a Hideaway Block or General Anesthesia on an outpatient basis. Tissue that is removed will be sent to Pathology for analysis to rule out carcinoma. A wrist splint will be placed for a couple of weeks. She states she had a NCS about a year ago. She states she was told it was ok. Since her symptoms are increasing especially on her dominant right wrist, can repeat the NCS later in the Spring or early Summer after her ganglion cyst surgery has healed. Patient was informed of the risks and complications of the procedure including alternatives to surgery. These were discussed with the patient personally. Patient voices understanding and wishes to proceed. Some of the risks and complications were included in a form from the [employer]. Some of the risks and complications that were discussed included but were not inclusive of failure to diagnose including symptom relief, pain, infection, numbness, stiffness, loss of digit, RSD (CRPS), need for further surgery, contracture, and wound healing problems. Discussed with the patient that the incision for the ganglion cyst surgery will involve the sun tattoo. There is the chance of a scar contour deformity involving this tattoo. Because of the increasing pain, she wants to proceed with the surgery. She voices understanding that the tattoo may need to be revised after the scar has healed if a scar contour deformity develops. Because she is a recovering addict and is on Vivitrol, she doesn't want narcotics after surgery. She would try Tramadol or Tylenol and Ibuprofen. The Vivitrol is monthly. She wants to schedule the surgery around that monthly injection. We discussed the current risks associated with COVID-19. While it is understood that there is a community spread of COVID-19, the risk of cory COVID-19 while at [facility] ([facility]) is very low; however, the risk cannot be completely mitigated because of the community spread of the disease. We discussed in detail the risk of exposure to and/or potential harm posed by the COVID-19 virus with having a surgery/procedure at this time versus the risk of delaying the surgery/procedure. It is not possible to know either the risk of delaying the surgery or procedure or chance of getting an infection with perfect accuracy, but a joint decision was made to proceed at this time with the scheduled surgery/procedure as indicated on the consent form. Patient was notified that we will need to comply with any screening or testing [facility] wishes to perform or that surgery may be delayed for any positive results. Discussed with the patient that I was tested for COVID-19 on 01/24/20 which was negative and on 02/07/20 which was negative and on 02/21/20 which was negative and on 03/06/20 which was negative and on 03/20/20 which was negative and on 04/10/20 which was negative and on 05/01/20 which was negative and on 06/05/20 which was negative and on 06/26/20 which was negative and on 07/15/20 which was negative. My testing regimen at this time is to be COVID-19 tested every 2 weeks or so. I received the COVID-19 vaccine (Moderna) on 07/23/20 and the second vaccine dose was received on 08/20/20. When I was hospitalized on 09/22/20 I was tested for COVID-19 which was negative. I was also tested for COVID-19 on 10/07/20 which was negative and on 11/03/20 which was negative. Procedure Criteria Procedure Type: Elective COVID Risk Discussion: The surgeon/proceduralist and patient have discussed in detail the risk of exposure to and/or potential harm posed by the COVID-19 virus with having a surgery/procedure at this time versus the risk of delaying the surgery/procedure. It is not possible to know either the risk of delaying the surgery or procedure or chance of getting an infection with perfect accuracy, but a joint decision was made between the patient and the surgeon/proceduralist to proceed at this time with the scheduled surgery/procedure as indicated on the consent form.
[2020-11-14] VITALS (8 sets, daily range): BP systolic 122–146; BP diastolic 58–94; PULSE 64–98; RESP 16–24; TEMP 36.1–37.1; O2SAT 96–100; BMI 47.3
--- NOTE | 2020-11-14 | GANG_PTH ---
PATIENT: SAYRA MORENO [place] [facility] [place][id number] AGE/SX: 30/F ROOM: RE11/14/[address]: Dr. Huber Zhou MD : 1990 BED: DIS: 11/14/2020 SPEC #: [id number] RECD: 11/14/20 14:24 STATUS: ANA REQ #: [id number] LISETH: 11/14/20 00:[address]: Huber Zhou DEPT: SURGICAL PATHOLOGY RECD BY: Oren Olsen ENTERED: 11/17/20 08:14 SP TYPE: GANGLION OTHR DR: Dr. Concha Crowder, DO Tissues: GANGLION CYST Procedures: Surgery Specimen Level III HEADER OPERATION: Excision ganglion cyst dorsum wrist left PRE-OP DIAGNOSIS: Ganglion dorsum left wrist TISSUE SUBMITTED: Ganglion dorsum left wrist MICROSCOPIC DIAGNOSIS Soft tissue of left wrist, excision: Ganglion cyst. AM:brennon 11/18/2020 MICROSCOPIC DESCRIPTION Slides are reviewed. GROSS DESCRIPTION Received in fixative is one container labeled with the patient's name and designated ganglion left wrist. The specimen consists of corona fragment of tissue that is bisected and reveals a cyst filled with mucoid material measuring 1.5 cm in greatest dimension. The entire specimen is submitted in one cassette. / SJ:brennon 11/17/20 TC:1 CPT: 38089
[2020-11-14 09:06] LABS: Internal QC Validated? YES +Cl - CLEAR BKGD; Pregnancy, Urine Negative Negative
[2020-11-14] MEDS: Lactated Ringers 1,000 ML 100 ML IV (09:21)
[2020-11-14] MEDS: Cefazolin 2 GM in 0.9% Normal Saline 100 ML IV (10:53)
[2020-11-14] MEDS: Lidocaine 1% /Epi 1:100 (20ml) 20 ML Vial (11:46)
[2020-11-14] MEDS: Mupirocin Ointment 22gm Tube 1 APPLIC (11:46)
--- NOTE | 2020-11-14 12:06 | OP.PCM_ITS ---
Report of Operation Date of Procedure: 11/14/20 Pre-Operative Diagnosis: 1. 2 cm painful ganglion cyst dorsum left wrist at the level of the long finger. 2. Bilateral carpal tunnel syndrome with numbness, worse on the right. 3. Recovering drug addict (Fentanyl) for 9 months. Post-Operative Diagnosis: 1. 2 cm painful ganglion cyst dorsum left wrist between EIP and EDC tendons (compartment 4) ulnarly and ECRB and EPL tendons (compartment 2 and 3) radially with extension to scapholunate joint. 2. Bilateral carpal tunnel syndrome with numbness, worse on the right. 3. Recovering drug addict (Fentanyl) for 9 months. Surgery/Procedure Performed:: Excision 2 cm painful ganglion cyst dorsum left wrist between EIP and EDC tendons (compartment 4) ulnarly and ECRB and EPL tendons (compartment 2 and 3) radially with extension to scapholunate joint. Description of Surgical Findings:: 30 year old woman presents with a soft tissue mass dorsum left wrist at the level of the long finger. It is clinically consistent with a ganglion cyst. She states at rest, there is minimal discomfort. 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 She had a CT left upper extremity on 04/29/20. It showed no CT evidence for soft tissue mass of the dorsal wrist. She had an x-ray left wrist on 06/26/20. It showed normal x-ray examination of the left wrist. She had an Ultrasound left wrist on 07/31/20. It showed 9 x 13 x 5 mm cyst on the dorsum of the wrist. This is not identified on the CT of April 29, 2020. Likely represents a ganglion cyst. She had an MRI left wrist on 08/30/20. It showed 1.4 x 1.1 x 0.6 cm lobular septated fluid collection on the dorsal aspect, deep to the extensor tendons, corresponding to the region of interest, consistent with a ganglion cyst. No fracture or avascular necrosis. No tear of the triangular fibrocartilage complex and scapholunate ligament. She also has complaints of numbness in her thumb, index finger, and long finger bilateral hands that are exacerbated after work. She is right hand dominant. Her right hand is more symptomatic than her left hand. She states she had a NCS about a year ago. She was told everything was ok. She denies trauma. She presents at this time for further evaluation and treatment. 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 She states she was an addict for 13 years and has been clean for 9 months. She gets a monthly injection of Vivitrol. Patient was informed of the risks and complications of the procedure including alternatives to surgery. These were discussed with the patient personally. Patient voices understanding and wishes to proceed. Some of the risks and complications were included in a form from the [employer]. Some of the risks and complications that were discussed included but were not inclusive of failure to diagnose including symptom relief, pain, infection, numbness, stiffness, loss of digit, RSD (CRPS), need for further surgery, co ntracture, and wound healing problems. Total tourniquet time - 39 minutes. 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 Drains: None. Estimated Blood Loss (mL): 5 ml. Description of Procedure: Patient was taken to OR in supine position and was placed under general anesthesia. The left hand and wrist area were prepped and draped in the usual fashion. SCD's were placed for DVT prophylaxis. Perioperative antibiotics were given intravenously. The left upper extremity was elevated and an Esmarch bandage was wrapped around the extremity. The tourniquet was elevated to 250 mmHg. I made a zig zag marking over the soft tissue mass in line with the existing tattoo. Using xylocaine with epinephrine, the marking was infiltrated. After waiting 5 minutes for the anesthetic to take effect, a zig zag incision was made into the subcutaneous tissue. I dissected down to the extensor tendons and there was a bulging mass deep to the tendons. The mass was located between the EIP and EDC tendons (compartment 4) ulnarly and the ECRB and EPL tendons (compartment 2 and 3) radially. I dissected the ganglion cyst down to the scapholunate joint. A small cuff of capsule was excised as well. The mass was sent to Pathology for analysis to rule out carcinoma. There was a small bony prominence that was excised with a rongeurs to minimize this prominence being a source of pain postoperatively. It was also sent to Pathology. The wound was irrigated with saline. The tourniquet was released after 39 minutes. Hemostasis was obtained with electrocautery. I reapproximated a portion of the retinaculum with 3-0 Vicryl figure of eight interrupted sutures. The deep dermis and subcutaneous tissue was approximated with 3-0 Vicryl interrupted sutures. The skin with associated tattoo was approximated with 4-0 Nylon simple interrupted and vertical mattress interrupted sutures. Antibiotic ointment was applied to the suture line followed by Xeroform gauze and 2x2 gauze and followed with a Kerlix gauze. A dorsal plaster wrist splint was applied with the wrist in neutral position. This was followed by a compression CALLY wrap. Patient tolerated the procedure well and was sent to PACU in satisfactory condition. Patient will be sent home on antibiotics. I will write a script for 5 pain pills that the patient's mother will manage as the patient would like to try to avoid possible relapse. Patient will followup in a week for a wound check and for discussion of the pathology report. The splint will be worn for 2 weeks. The sutures will be removed in two weeks. Grafts/Implants Used: None. - Complications None. - Admit VTE Documentation VTE Present on Admission: No VTE Mechan Device Prophylaxis: SCD's VTE Pharm Prophylaxis ordered?: No Surgery Charges CPT - 20600 ICD-10 - M67.432, F19.10
--- NOTE | 2020-11-14 12:42 | PCM.DC ---
You will use the following diet at home:: No restrictions Discharge Activity: May not drive while taking narcotic pain medications., May Shower - wear plastic bag over left hand when showering., - - elevate left hand. encourage range of motion fingers left hand to minimize stiffness. no heavy lifting. May shower in (days): 1 - wear plastic bag over left hand when showering. May resume sexual activity in: No Restrictions Weight Bearing Status: Weight bearing as tolerated Lifting Restrictions: 20 lbs. Keep extremity elevated above heart level: Left Arm Call your doctor if your incision/area has: Continuous Slow Oozing, Sudden Increased Bleeding, Increased Pain/ Swelling, Increased Redness, Foul Smelling Discharge, Swelling at the incision site Call your doctor if you observe: Fever of 101 or Higher, Coldness, Increased Pain, Shortness of breath, Chest pain, Calf discomfort, Uncontrolled pain Suture Line Care: - - after operative dressing removed in the office, apply antibiotic ointment to suture line daily. Will remove the wrist splint in 2 weeks. Change Dressing in (Days):: 7 - will change operative dressing in the office. Cleanse incision/area with: - - wear plastic bag over left hand when showering. Allergies/Adverse Reactions: Allergies Sulfa (Sulfonamide Antibiotics) Allergy (Verified 11/14/20 08:59) Anaphylaxis breathing issues Medications to take at Discharge buspirone 5 mg tablet 5 mg PO BID tab 06/26/20 sertraline 100 mg tablet 150 mg PO DAILY tab 06/26/20 trazodone 150 mg tablet 150 mg PO QHS tab 06/26/20 Naltrexone Microspheres [Vivitrol] 380 mg IM QMONTH 11/03/20 Cefadroxil [Duricef] 500 mg PO BID #8 capsule 11/14/20 Oxycodone HCl/Acetaminophen [Percocet 5/325] 1 tablet PO .QDAILY PRN PRN 5 Days #5 tablet 11/14/20 The following prescriptions were given: Cefadroxil [Duricef] 500 mg PO BID #8 capsule [facility] Oxycodone HCl/Acetaminophen [Percocet 5/325] 1 tablet PO .QDAILY PRN PRN 5 Days #5 tablet PRN Reason: Pain Score 6-10 Transmission Status[facility] Primary Care Physician: Concha Crowder DO [Primary Care Provider] - Test Results: Test results from this visit will be discussed in further detail at your follow-up appointment, if applicable. Please Follow Up With: Huber Zhou MD When: one week. call [phone] for appt. Proposed Discharge Date: 11/14/20
[2020-11-14] MEDS: oxyCODONE 5 MG Tablet PO (13:35)
[2020-11-14] MEDS: Acetaminophen 325 MG Tablet PO (13:35)
== END 2020-11-14 14:28 | disposition home or self-care (01) ==
LOC: SDC 08:34 → AC 08:42
PROVIDERS: Anesthesiology; PCP Family Medicine; Referring Provider Surgery; Visit Provider Surgery
PROC: (CPT 25111; principal; 2020-11-14 10:15)
DX: M67.432 Ganglion, left wrist (principal); G56.03 Carpal tunnel syndrome, bilateral upper limbs; F41.9 Anxiety disorder, unspecified; F32.9 Major depressive disorder, single episode, unspecified; Z79.899 Other long term (current) drug therapy
CPT/HCPCS: 01810; 25111; 81025; 87426; 88304; C9803; J7120; J2405

== ENCOUNTER → 2021-04-03 | Outpatient (CLI) | payer MEDICAID, SELFPAY | END | disposition home or self-care (01) | LOC: LABSPEC 15:53 | PROVIDERS: PCP Family Medicine; Visit Provider Physician Assistant Surgical | DX: R05 Cough (principal) | CPT/HCPCS: 87635; U0005; U0003 ==

== ENCOUNTER → 2021-04-16 | Outpatient (CLI) | payer MEDICAID, SELFPAY | END | disposition home or self-care (01) | LOC: LABSPEC 15:53 | PROVIDERS: PCP Family Medicine; Referring Provider Physician Assistant; Visit Provider Physician Assistant | DX: Z20.822 Contact with and (suspected) exposure to COVID-19 (principal) | CPT/HCPCS: 87635; U0005; U0003 ==

== ENCOUNTER → 2023-05-25 | Outpatient (CLI) | payer MEDICAID, SELFPAY ==
--- NOTE | 2023-05-25 12:14 | RAD_ITS ---
STUDY: X-RAY - RIGHT WRIST REASON FOR EXAM: Female, 32 years old. Painful ganglion cyst, dorsum right wrist. TECHNIQUE: 3 views of the right wrist were obtained. COMPARISON: None. FINDINGS: Normal visualized distal radius and ulna. Normal radiocarpal articulation. Normal distal radioulnar articulation. Normal carpal bones. Normal carpal articulations. Normal carpometacarpal articulation of the thumb. Normal second through fifth carpometacarpal articulations. Normal visualized metacarpal bones. The soft tissue structures are unremarkable. There is no demonstrated acute fracture. RAD/Wrist min 3 Views IMPRESSION: Normal x-ray examination of the right wrist. Electronically Signed: Benjamin Marshall MD at 14:21 EDT ,
--- NOTE | 2023-05-25 13:11 | NEURO ---
NCS and/or EMG Patient Report Ordering Doctor: Huber Zhou DATE OF SERVICE: 05/25/23 Shaun presents for electrodiagnostic testing of the upper limbs. She reports intermittent numbness and tingling in the hands. Electrodiagnostic findings: Median motor nerve demonstrates normal distal latency, amplitude and conduction velocity bilaterally. Normal right ulnar motor response bilaterally. Normal left and right median and ulnar F-waves. Sensory responses are within normal limits. Needle EMG testing performed in the upper limbs showed no evidence of denervation in any muscles tested. Motor unit action potentials with normal amplitude and duration. Electrodiagnostic impression: This is a normal electrodiagnostic study of the upper limbs. There is no electrodiagnostic evidence for peripheral neuropathy, including carpal tunnel syndrome, or cervical radiculopathy. Multi Select Codes Neurology Neurology Interp Codes: 75521-05 Musc test done w/n test comp (interp) (2) and 76207-30 Nrv cndj test 13/> studies (interp)
== END | disposition home or self-care (01) ==
LOC: PSN 10:36
PROVIDERS: PCP Family Medicine; Referring Provider Surgery; Visit Provider Surgery
DX: M67.431 Ganglion, right wrist (principal); G56.03 Carpal tunnel syndrome, bilateral upper limbs; M79.641 Pain in right hand; M54.2 Cervicalgia; G89.29 Other chronic pain
CPT/HCPCS: 73110; 95886; 95913

== ENCOUNTER 2023-06-14 06:55 | Day surgery (SDC) | payer MEDICAID, SELFPAY ==
--- NOTE | 2023-06-13 08:30 | CYST_PTH ---
PATIENT: SAYRA MORENO LOC: [facility] [place] U#:[id number] AGE/SX: 32/F ROOM: RE06/14/[address]: Dr. Huber Zhou MD : 1990 BED: DIS: 06/14/2023 SPEC #: [id number] RECD: 06/14/23 12:11 STATUS: ANA ARIANE #: [id number] LISETH: 06/13/23 08:[address]: Huber Zhou DEPT: SURGICAL PATHOLOGY RECD BY: Lindy Elizondo ENTERED: 06/14/23 12:12 SP TYPE: Cyst OTHR DR: Dr. Concha Crowder DO Tissues: GANGLION CYST Procedures: Surgery Specimen Level III HEADER OPERATION: Excision painful ganglion cyst dorsum right wrist PRE-OP DIAGNOSIS: 2.0 cm painful ganglion cyst dorsum right wrist at level of long finger TISSUE SUBMITTED: Ganglion cyst and extensive tenosynovitis right hand MICROSCOPIC DIAGNOSIS Soft tissue of right hand, biopsy: Fragments of fibrofatty tissue consistent with ganglion cyst. AM:brennon 06/15/2023 MICROSCOPIC DESCRIPTION Slides are reviewed. GROSS DESCRIPTION Received in fixative is one container labeled with the patient's name and designated ganglion cyst right hand. The specimen consists of multiple irregular fragments of white-pink soft tissue that in aggregate measure 3.0 x 2.0 x 0.2 cm. The specimen is totally submitted in one cassette. / AM:brennon 06/14/2023 TC:5 [facility]: [id number]
--- NOTE | 2023-06-14 07:20 | HP.PCM_ITS ---
History and Physical Date of Admission: 06/14/23 HISTORY OF PRESENT ILLNESS 32 year old woman presents with a soft tissue mass dorsum right wrist at the level of the long finger. It is clinically consistent with a ganglion cyst. She states at rest, there is minimal discomfort. 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 She denies trauma. She denies recent infection. She denies fever. She also has complaints of numbness in her thumb, index finger, and long finger bilateral hands that are exacerbated after work. She is right hand dominant. Her right hand is more symptomatic than her left hand. She states she had a NCS about 3 years ago. She was told everything was ok. She denies trauma. She presents at this time for further evaluation and treatment. 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 She states she was an addict for 13 years and has been clean for 3 years. In the past, she had been on a monthly injection of Vivitrol. PAST MEDICAL HISTORY Anxiety and depression Back problem Bilateral carpal tunnel syndrome jeferson Carpal tunnel syndrome of right wrist section Chronic neck pain Drug abuse Ganglion cyst of dorsum of left wrist Ganglion cyst of dorsum of right wrist Generalized headaches Mild carpal tunnel syndrome of left wrist Right hand pain Seen by rehabilitation services PAST SURGICAL HISTORY Birthmark removed Excision 2 cm painful ganglion cyst dorsum left wrist between EIP and EDC tendons (compartment 4) ulnarly and ECRB and EPL tendons (compartment 2 and 3) radially with extension to scapholunate joint - 11/14/20 History of delivery ALLERGIES Sulfa (Sulfonamide Antibiotics) MEDICATIONS buspirone FAMILY HISTORY Grandfather - blood clot - Heart disease Grandmother - Breast cancer Mother - Arthritis, Depression Father - Arthritis Grandfather - Diabetes SOCIAL HISTORY Smoking Status: Never smoker alcohol intake: current substance use type: former substance user Date of last use: December 2019, amphetamines fentanyl REVIEW OF SYSTEMS General - Denies fever, fatigue, and weight loss. Has history of drug abuse. Eyes - Denies cataracts and glaucoma. ENT - Denies nasal congestion and sore throat. Endocrine - Denies excessive thirst and urination. Skin - Denies suspicious lesions and skin cancer. Musculoskeletal - Has joint pain, weakness of muscles and joints, and back pain. Denies joint pain and arthritis. Has right wrist pain in the area of a soft tissue mass consistent with a ganglion cyst. Neuro - Denies headaches. Has numbness thumb, index finger and long finger bilateral hands. Cardiovascular - Denies chest pain, fatigue, and shortness of breath with exertion. Psych - Has anxiety. Has depression. Has claustrophobia. Respiratory - Denies chronic cough and shortness of breath. Gastrointestinal - Denies nausea, vomiting, diarrhea, and constipation. Hematologic - Denies abnormal bruising and bleeding. Genitourinary - Denies hematuria and urinary frequency. PHYSICAL EXAMINATION General - Alert and Oriented. HEENT - PERRL. EOMI. Throat is clear. Neck - Supple and nontender. No cervical adenopathy. Lungs - Clear to auscultation. Heart - Regular rate and rhythm. Abdomen - Soft and nondistended. Extremities - FROM. No axillary adenopathy. Radial pulses are palpable. She is right hand dominant. On the dorsum right wrist at the level of the long finger is a soft tissue mass. It is mobile. Measures 2 cm. Some tenderness to palpation when she flexes her wrist. Overlying the dorsum right hand and wrist is a diaz tattoo. She also has decreased sensation to pinprick involving her thumb and index finger and long finger bilateral hands. Negative Tinel's at the wrists. Negative Phalen's test. Negative Tinel's at the cubital tunnel areas. No evidence of thenar atrophy bilaterally. Neuro - CN II-XII grossly intact. Psych - Normal mood and affect. ASSESSMENT 1. 2 cm painful ganglion cyst dorsum right wrist at the level of the long finger. 2. Bilateral carpal tunnel syndrome with numbness, worse on the right. 3. Recovering drug addict (Fentanyl) for 3 years. PLAN Patient has a soft tissue mass dorsum right wrist at the level of the long finger that has increased in size and increased in pain. 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 Recommend excision of the ganglion cyst which can be done under tourniquet control either with a Kimberly Block or General Anesthesia on an outpatient basis. Tissue that is removed will be sent to Pathology for analysis to rule out carcinoma. A wrist splint will be placed for a couple of weeks. She states she had a NCS about 3 years ago. She states she was told it was ok. Since her symptoms are increasing especially on her dominant right wrist, will order repeat NCS. If carpal tunnel surgery is needed, it will be done after adequate healing of the ganglion cyst surgery. Patient was informed of the risks and complications of the procedure including alternatives to surgery. These were discussed with the patient personally. Patient voices understanding and wishes to proceed. Some of the risks and complications were included in a form from the [employer]. Some of the risks and complications that were discussed included but were not inclusive of failure to diagnose including symptom relief, pain, infection, numbness, stiffness, loss of digit, RSD (CRPS), need for further surgery, contracture, and wound healing problems. Discussed with the patient that the incision for the ganglion cyst surgery may involve the diaz tattoo. There is the chance of a scar contour deformity involving this tattoo. Because of the increasing pain, she wants to proceed with the surgery. She voices understanding that the tattoo may need to be revised after the scar has healed if a scar contour deformity develops. Preoperatively, an x-ray was done on 05/25/23 to look for any osteophytic spurs and any other bony abnormalities. It was a normal x-ray examination right wrist. Assessment & Plan Assessment/Plan (1) Ganglion cyst of dorsum of right wrist: (2) Right hand pain:
[2023-06-14] MEDS: Lactated Ringers 1,000 ML 15 ML IV (07:30)
[2023-06-14 07:31] LABS: Internal QC Validated? YES +Cl - CLEAR BKGD; Pregnancy, Urine Negative Negative
[2023-06-14 07:33] VITALS: BP 110/56; PULSE 98; RESP 18; TEMP 36.7; O2SAT 100; BMI 42.3
[2023-06-14] MEDS: Cefazolin 2 GM in 0.9% Normal Saline (100mL Bag) 100 ML IV (08:53)
[2023-06-14] MEDS: Lidocaine 1% /Epi 1:100 (20ml) 20 ML Vial (09:17)
[2023-06-14] MEDS: Mupirocin Ointment 22gm Tube 1 APPLIC (09:28)
[2023-06-14 10:48] VITALS: BP 110/56; BP 133/83; PULSE 94; RESP 16; TEMP 36.1; O2SAT 96
[2023-06-14 11:00] VITALS: BP 110/56; BP 125/69; PULSE 113; RESP 16; O2SAT 93
--- NOTE | 2023-06-14 11:06 | DCINST_ITS ---
Discharge Instructions Diet Discharge Diet: No restrictions Activity Discharge Activity: May Not Drive (until seen in office) May resume sexual activity in: 10-14 days Lifting Restrictions: 5 lb lifting restriction right hand Keep extremity elevated above heart level: Right Arm Additional Activity Instructions:: Move fingers as much as possible. Dressing / Incision Call your doctor if your incision/area has: Continuous Slow Oozing, Sudden Increased Bleeding, Increased Pain/ Swelling, Increased Redness, Foul Smelling Discharge and Swelling at the incision site Call your doctor if you observe: Fever of 101 or Higher, Coldness, Increased Pain, Inability to urinate, Inability to have a bowel movement, Shortness of breath, Chest pain, Calf discomfort and Uncontrolled pain Change Dressing in: leave in place till F/U Additional Dressing/Incision Instructions:: Keep splint on for two weeks. Follow Up Care Please Follow Up With: Huber Zhou MD When: Please call office for appointment next week. [phone] Test Results: Test results from this visit will be discussed in further detail at your follow- up appointment, if applicable. Discharge Plan Admission Attending Provider: Huber Zhou Primary Care Provider: Concha Crowder Discharge Orders/Prescriptions Prescriptions: New oxycodone-acetaminophen [Percocet] 5-325 mg tablet 1 tab PO TID PRN (Reason: pain (scale score 7-10)) 5 Days Qty: 14 0RF levofloxacin 500 mg tablet 500 mg PO DAILY 14 Days Qty: 14 0RF Continued buspirone 5 mg tablet 5 mg PO BID Patient Comments: TAKE 1 TABLET BY MOUTH TWICE DAILY Referrals / Follow Up: Concha Crowder DO [Primary Care Provider] - Disposition Disposition (needs filled in before D/C Order can be placed): Home, Self Care
[2023-06-14 11:15] VITALS: BP 110/56; BP 117/75; PULSE 85; RESP 16; O2SAT 100
[2023-06-14 11:25] VITALS: BP 110/56; BP 117/82; PULSE 97; RESP 16; TEMP 36.1; O2SAT 100
--- NOTE | 2023-06-14 11:43 | OP.PCM_ITS ---
Problems Associated Problem List Diagnoses (1) Ganglion cyst of dorsum of right wrist: (2) Right hand pain: (3) Extensor tenosynovitis of right wrist: Report of Operation Date of Procedure: 06/14/23 Pre-Operative Diagnosis: Painful ganglion cyst dorsum right wrist by alonso santos. Post-Operative Diagnosis: 1. Painful ganglion cyst dorsum right wrist by long finger at lunate-triquetrial joint. 2. Extensor tenosynovitis right wrist, (Compartment 4, Extensor Digitorum Communis (EDC) and Extensor Indicis Proprius (EIP) tendons). Surgery/Procedure Performed:: Excision painful ganglion cyst dorsum right wrist by long finger at lunate-triquetrial joint. Extensor tenosynovectomy dorsum right wrist, (Compartment 4, EDC and EIP tendons). Description of Surgical Findings:: 32 year old woman presents with a soft tissue mass dorsum right wrist at the level of the long finger. It is clinically consistent with a ganglion cyst. She states at rest, there is minimal discomfort. 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 She denies trauma. She denies recent infection. She denies fever. Patient was informed of the risks and complications of the procedure including alternatives to surgery. These were discussed with the patient personally. Patient voices understanding and wishes to proceed. Some of the risks and complications were included in a form from the [employer]. Potential risks and complications included but not inclusive of bleeding, infection, seroma, hematoma, bruising, swelling, loss of sensation to skin, partial or complete loss of skin flap and/or skin graft, wound breakdown, need for wound care, poor scarring, poor aesthetic outcome, intra operative cardiac or neurologic events, DVT, PE, and reaction to anesthesia. Some of the risks and complications that were discussed included but were not inclusive of failure to diagnose including symptom relief, pain, infection, numbness, stiffness, loss of digit, RSD (CRPS), need for further surgery, contracture, and wound healing problems. Total tourniquet time - 79 minutes. Surgeon: Huber Zhou MD residential roofer: None Type of Anesthesia: General Anesthesiologist: Luis Manuel Raza MD and Norma Sams CRNA Specimen's removed: Ganglion cyst dorsum right wrist by long finger and extensor tenosynovitis right wrist to Pathology and Microbiology. Drains: None. Estimated Blood Loss (mL): 5. Description of Procedure: Patient was taken to OR in supine position and was placed under general anesthesia. The right arm was prepped and draped in the usual fashion. SCD's were placed for DVT prophylaxis. Perioperative antibiotics were given intravenously. A tourniquet was placed on the right forearm. I elevated the right hand and wrapped it with an Esmarch bandage as the tourniquet was elevated to 250 mmHg. I made zig zag markings in longitudinal direction over the mass right wrist (clinically ganglion cysts) with the capability, if necessary, to extend the incision in radial and ulnar directions. Using xylocaine with epinephrine, the markings were infiltrated. Under loupe magnification, I made a zig zag incision into the subcutaneous tissue. I made a partial incision in the extensor retinaculum to get better exposure as the mass appeared deep to the extensor tendons. After localizing the mass, it was excised. It extended to the lunate-triquetrial joint. The stalk was also excised along with a small cuff of capsule. It was noted there was multiple lobulations of the ganglion cyst that were located and excised as well. During my dissection, there was extensive tenosynovitis involving the extensor tendons of Compartment 4, Extensor Digitorum Communis (EDC) and Extensor Indicis Proprius (EIP) tendons. Dissecting both radially, Compartment 2 {Extensor Carpi Radialis Brevis (ECRB) and Extensor Carpi Radialis Longus (ECRL)} and Compartment 3 {Extensor Pollicis Longus (EPL)}, and ulnarly, Compartment 5 {Extensor Digiti Minimi (EDM)}, there was no further evidence of extensive tenosynovitis. During the radial dissection, there was a branch of the superficial sensory branch of the radial nerve that was seen and preserved. Extensor tenosynovectomy of Compartment 4 was then done. This tissue along with the ganglion cyst tissue was sent to Pathology for analysis to rule out carcinoma and to Microbiology for culture. A positive culture will necessitate antibiotic therapy. The wound was irrigated with saline. The wound was then closed in a layered fashion with 4-0 Vicryl interrupted sutures for the deep dermis and subcutaneous tissue. The skin was approximated with 5-0 Prolene simple interrupted sutures. Since the incision went through a tattoo on the dorsum of her right wrist and hand, I carefully approximated the tattoo. I discussed with the patient preoperatively that a revision of the tattoo may be necessary in the future after healing has occurred. She voiced understanding and wished to proceed with the procedure. During this portion of the procedure, the tourniquet was released after 79 minutes. Hemostasis was obtained with elevation, and compression and some electrocautery. No clinical evidence of hematoma was noted. I then dressed the incision with antibiotic ointment followed by 4x4 gauze and a Kerlix gauze. This was followed with a volar wrist splint and a compression jacinta wrap. The splint will be on for 2 weeks and she will be encouraged to move her fingers especially at the MP joints (flex to 90 degrees) during this time frame. Patient tolerated the procedure well and was sent to PACU in satisfactory condition. Patient will be sent home on antibiotics and pain medication. Patient will followup in a week for a wound check and for discussion of the pathology report and for discussion of the microbiology culture result. A positive culture will necessitate antibiotic therapy. I will remove the sutures in 2 weeks. Grafts/Implants Used: None. Procedure Start Time: 09:17 Procedure Stop Time: 10:39 Complications None. Admit VTE Documentation VTE Present on Admission: No VTE Mechan Device Prophylaxis: SCD's VTE Pharm Prophylaxis ordered?: No Addendum Addendum: Surgery Charges CPT - 92293 ICD-10 - M67.431, M79.641, M65.831 58686 M65.831, M79.641, M67.431
[2023-06-14] MEDS: oxyCODONE 5 MG Tablet PO (11:59)
[2023-06-14 12:40] VITALS: BP 106/50; BP 110/56; PULSE 70; RESP 16; O2SAT 97
== END 2023-06-14 12:51 | disposition home or self-care (01) ==
LOC: SDC 06:57 → AC 06:58
PROVIDERS: Anesthesiology; PCP Family Medicine; Referring Provider Surgery; Visit Provider Surgery
PROC: (CPT 25111; principal; 2023-06-14 08:15)
DX: M67.431 Ganglion, right wrist (principal); F11.21 Opioid dependence, in remission; M65.841 Other synovitis and tenosynovitis, right hand; G56.03 Carpal tunnel syndrome, bilateral upper limbs; Z79.899 Other long term (current) drug therapy
CPT/HCPCS: 25111; 25118; 01810; 81025; 87070; 87075; 87102; 87205; 87206; 88304; J7120; J2405

== ENCOUNTER 2023-08-05 13:44 | Emergency (ER) | payer MEDICAID, SELFPAY ==
[2023-08-05 13:45] VITALS: BP 156/77; PULSE 118; RESP 16; TEMP 36.2; O2SAT 99; BMI 40.4
--- NOTE | 2023-08-05 13:59 | EX.ED.DYSGE1 ---
HPI History of Present Illness Chief Complaint: Abd Pain Detail of Chief Complaint: Lower quadrant/left inguinal pain Informant: patient Onset/Context/Timing Onset: Days Context: Sudden Onset Timing: Continuous and Waxes and wanes Quality: Pain Location: Left inguinal region Current Severity: Mild Maximum Severity: Moderate Worsened by: Nothing Relieved by: Nothing Associated Symptoms Associated Symptoms: Pain with urination Narrative Narrative: Patient is a 32-year-old female who was last normal menstrual period ended the end of June. She does not use any form of control. She is sexually active. She denies history of endometriosis or ovarian cyst. She has a remote history of STI. She states that girard on the outside when she urinates. She informed she was at the urgent care and her urine dipped negative . She denies dyspareunia. She denies fever or chills. She denies low back or flank pain. There is no history of renal or ureterolithiasis. Patient has not noted a mass or bulge in her left inguinal area. She denies any change in color, consistency or caliber of her stool. She denies fever or chills. Prior similar symptoms: No Recent Illness/Hospitalization: No PFSH PFS Medical History Allergies Anxiety Anxiety and depression Back problem Bilateral carpal tunnel syndrome jeferson removed Carpal tunnel syndrome of right wrist section Chronic neck pain Depression Drug abuse Extensor tenosynovitis of right wrist Ganglion cyst of dorsum of right wrist Generalized headaches Migraine headache Mild carpal tunnel syndrome of left wrist Non-smoker Right hand pain Seen by rehabilitation services Home Medications buspirone 5 mg tablet 5 mg PO BID 06/26/20 [History Last Taken Unknown] oxycodone-acetaminophen 5 mg-325 mg tablet (Percocet) 1 tab PO TID PRN pain (scale score 7-10) 5 days #14 tabs 06/14/23 [Rx Last Taken Unknown] nitrofurantoin monohydrate/macrocrystals 100 mg capsule 100 mg PO Q12 #10 CAPSULES 08/05/23 [Rx Last Taken Unknown] phenazopyridine 200 mg tablet (Pyridium) 200 mg PO TID #10 tabs 08/05/23 [Rx Last Taken Unknown] Allergy/AdvReac Type Severity Reaction Status Date / Time Sulfa (Sulfonamide Allergy Anaphylaxis Verified 08/05/23 14:12 Antibiotics) Family History Grandfather blood clot Heart disease Grandmother Breast cancer Mother Arthritis Depression Father Arthritis Grandfather Diabetes Surgical History Birthmark Ganglion cyst of dorsum of left wrist History of delivery History of surgical removal of ganglion cyst Social History household members: other details: children and father Smoking Status: Never smoker alcohol intake: current substance use type: former substance user Date of last use: December 2019, amphetamines fentanyl what type of physical activity do you participate in: yoga do you feel safe at home: Yes additional social history: Does Take Aspirin as needed Does Take Ibuprofen as needed ROS ROS ED Constitutional Constitutional ED: Denies chills, fever(s), subjective or sweats Cardiovascular Cardiovascular: Denies chest pain or palpitations Respiratory/Chest Respiratory/Chest: Denies cough, dyspnea or dyspnea on exertion Gastrointestinal Gastrointestinal: Reports abdominal pain; Denies constipation, diarrhea, melena, nausea or vomiting Genitourinary Genitourinary ED: Reports dysuria; Denies hematuria or urinary frequency Musculoskeletal Musculoskeletal: Denies arthralgias, back pain or myalgias Integumentary Denies rash Endocrine Endocrinology: Denies cold intolerance or heat intolerance Hematologic/Lymphatic Hematologic/Lymphatic: Denies systems reviewed and no addt'l complaints, except as documented EXAM Physical Exam Const Vital Signs: 08/05/23 13:45 Temperature 97.2 F L Temperature Source Temporal Pulse Rate 118 H Respiratory Rate 16 Blood Pressure 156/77 H Blood Pressure Mean 103 Pulse Ox 99 Oxygen Delivery Method Room Air Signs are remarkable for a heart rate of 118 and blood pressure of 156/77. Positive well nourished, well developed and obese General Appearance ED: well developed, NAD and pallor; Negative for cyanotic or diaphoretic Nutritional Appearance: obese HEENT Reports moist mucous membranes HEENT Narrative: Head is atraumatic and normocephalic. Ears normal. Nares patent. Patient has facial tattoos and multiple piercings. Eyes PERRL and EOMs intact bilaterally General Eye ED: Negative for pale conjunctiva or scleral icterus Neck no lymphadenopathy, supple and no JVD Chest Wall inspection of chest normal and palpation of chest normal Resp normal respiratory effort and clear to auscultation bilaterally Cardio regular rhythm, S1 normal heart sound, S2 normal heart sound and no murmurs Rate: tachycardic GI normal to inspection, nondistended, normoactive bowel sounds, non-distended and no masses; Negative for non-tender or hepatosplenomegaly GI Narrative: There is pain to palpation above the left inguinal area. There is no inguinal lymphadenopathy. There is no inguinal mass or hernia. Auscultation: normoactive bowel sounds Palpation: soft; Negative for guarding, splenomegaly or rebound tenderness present Back/Spine no CVA tenderness Extremity normal to inspection Neuro oriented x3, CN's II-XII intact bilaterally and no sensory deficits noted Sensorium / Orientation: alert Psych mental status grossly normal Skin no rashes or lesions noted, no wounds and skin turgor normal General Skin Exam: pallor; Negative for elasticity normal or jaundice MDM MDM MDM Narrative Medical decision making narrative: Will obtain test to rule out and if then 1 will need to consider ectopic . This may be musculoskeletal to her. This may be related to a UTI or STI. Also need to consider additional gynecological pathology i.e. ovarian cyst. Doubt torsion this may also represent lower abdominal pain of unknown etiology Lab Data Attestation: I reviewed the patient's lab results. Lab results narrative: There is blood and leukoesterase on macro and negative nitrites. There is 1+ bacteria. Since patient is symptomatic we will treat with Macrobid. In light of this data pelvic exam is not indicated since she does not complain of vaginal discharge or dyspareunia. Labs: Laboratory Results - last 24 hr 08/05/23 14:20 Urine Color Yellow Urine Clarity Sl. Cloudy Urine pH 6.5 Ur Specific [place] 1.020 Urine Protein 15 H Urine Glucose (UA) Normal Urine Ketones Negative Urine Occult Blood 25 H Urine Nitrite Negative Urine Bilirubin Negative Urine Urobilinogen 8 H Ur Leukocyte Esterase 25 H Urine RBC 0-5 SEEN Urine WBC 0-5 SEEN Ur Squamous Epith Cells 0-5 SEEN Urine Bacteria 1+ Urine Mucus 0 SEEN Discharge Plan Triage Chief Complaint: Abd Pain ED Provider: ShubhamJohnnie Dx/Rx/DC Orders Clinical Impression: Sinus tachycardia, Cystitis Instructions: ED Cystitis Female Adult Prescriptions: New phenazopyridine [Pyridium] 200 mg tablet 200 mg PO TID Qty: 10 0RF nitrofurantoin monohyd/m-cryst [nitrofurantoin monohyd/m-cryst] 100 mg capsule 100 mg PO Q12 Qty: 10 0RF No Action buspirone 5 mg tablet 5 mg PO BID Patient Comments: TAKE 1 TABLET BY MOUTH TWICE DAILY oxycodone-acetaminophen [Percocet] 5-325 mg tablet 1 tab PO TID PRN (Reason: pain (scale score 7-10)) 5 Days Qty: 14 0RF Primary Care Provider: Concha Crowder Referrals: Concha Crowder, [Primary Care Provider] - 3-5 Days if not improving Activity Restrictions/Additional Instructions: 1. Take medication until gone as prescribed even if your symptoms resolve. 2. The Pyridium will change your urine orange to red. Recommend urine pad in your underwear to prevent staining of your close. Disposition Disposition: Home, Self Care
[2023-08-05 14:28] LABS: Mucous, Urine 0 SEEN /hpf (<or=2+)
[2023-08-05 14:38] LABS: Color, Urine Yellow (Yellow); Glucose, Dipstick Normal (Normal); Ketone-Dipstick Negative (Negative); Leukocyte Esterase-Dipstick 25 /ul (Negative); Nitrite-Dipstick Negative (Negative); Occult Blood-Urine 25 /ul (Negative); Protein-Dipstick 15 mg/dl (Negative); Urine Bilirubin Dipstick Negative (Negative); Urine Clarity Sl. Cloudy (Clear); Urine Urobilinogen 8 mg/dl (Normal); Urine pH 6.5 (5.0 - 8.0)
[2023-08-05 14:47] LABS: Bacteria 1+ /hpf (None Seen); Red Blood Cells-Urine 0-5 SEEN /hpf (0-5); Squamous Epithelial Cells - UA 0-5 SEEN /hpf (5-10); White Blood Cells 0-5 SEEN /hpf (0-5)
[2023-08-05] MEDS: Nitrofurantoin Macrocrystals 100 MG Capsule PO (15:12)
[2023-08-05] MEDS: Phenazopyridine 95 MG Tablet 190 MG PO (15:12)
[2023-08-05 15:14] VITALS: RESP 14
== END 2023-08-05 15:17 | disposition home or self-care (01) ==
PROVIDERS: Emergency Provider Emergency Medicine; PCP Family Medicine; Visit Provider Emergency Medicine
DX: N30.90 Cystitis, unspecified without hematuria (principal); R00.0 Tachycardia, unspecified; R30.0 Dysuria; E66.9 Obesity, unspecified
CPT/HCPCS: 81001; 87491; 87591; 99283